=== PATIENT | male | born 1950 | race Caucasian/White ===

== ENCOUNTER 2021-10-29 14:16 | Emergency (ER) | payer MEDICARE, SELFPAY ==
--- NOTE | ~2021-10-29 | XR_ITS ---
EXAMINATION: XR chest 2V Exam Date/Time: 10/29/2021 14:50 CDT HISTORY: congestion, post covid 3 wks Comparison: 03/05/2017. RESULT: Lines, tubes, and devices: None. Lungs and pleura: Clear. Stable left midlung scar/granuloma. Cardiomediastinal silhouette: Stable. Other: No acute osseous or upper abdominal finding. IMPRESSION: No acute cardiopulmonary process. Reviewed, dictated and finalized at location K.
[2021-10-29 14:25] VITALS: BP 147/67; PULSE 69; RESP 20; TEMP 36.8; O2SAT 97
--- NOTE | 2021-10-29 14:46 | ED.URI ---
HPI - URI/Sore Throat General Chief Complaint: Upper Respiratory Infection Stated Complaint: Chest Congestion/Sore Throat Time Seen by Provider: 10/29/21 14:46 Source: patient and RN notes reviewed Mode of arrival: ambulatory Limitations: no limitations History of Present Illness HPI Narrative: 71-year-old male presented for complaint of chest feeling tight with breathing, occasional nonproductive cough, headache. Endorses testing positive for COVID on 10/17, symptoms had resolved after taking Paxil bid. Yesterday he woke with phlegm in the chest and sore throat. States his COVID test was negative today. He is taking [id number] Coricidin for symptoms. Denies chest pain, palpitations, dizziness, shortness of breath, nausea, vomiting, diarrhea, fevers or chills. MD elicited complaint: cough Related Data Home Medications Medication Instructions Recorded Confirmed cholecalciferol (vitamin D3) 50 50 mcg PO BID 05/06/20 10/29/21 mcg (2,000 unit) capsule magnesium citrate 100 mg capsule 100 mg PO BID 05/06/20 10/29/21 multivitamin 1 tablet PO DAILY 05/06/20 10/29/21 pyridoxine (vitamin B6) 25 mg 20 mg PO DAILY 05/06/20 10/29/21 tablet vitamin B complex (B 1 tablet PO DAILY 05/06/20 10/29/21 Complex-Vitamin B12 tablet) Allergies Allergy/AdvReac Type Severity Reaction Status Date / Time No Known Allergies Allergy Mild Verified 10/29/21 14:49 Review of Systems Review of Systems: CONSTITUTIONAL: denies malaise, chills, sweats, fever EYES: Denies visual changes, redness, or discharge ENT: Reports rhinorrhea, congestion, sore throat denies sinus pain, otalgia CARDIOVASCULAR: Denies chest pain, palpitations, edema RESPIRATORY: Reports cough, post nasal drainage. Denies dyspnea GASTROINTESTINAL: Denies abdominal pain, nausea, vomiting, diarrhea SKIN: Denies rash or itching MUSCULOSKELETAL: denies myalgia NEUROLOGIC: Denies headache PMFSH Past Medical History Medical History Diabetes History of prostate cancer HTN (hypertension) Hyperlipidemia Surgical History Surgical History History of prostatectomy age 42 Family History Family History Mother Diabetes mellitus Father Malignant neoplasm of prostate Family history of dementia Sibling Malignant neoplasm of prostate Grandparent Malignant neoplasm of prostate Social History Social History Smoking status: Former smoker Second hand tobacco smoke exposure: No Smoking end date: 04/02/90 Alcohol intake: current Alcohol use details: Occasional. Substance use: never Substance use type: does not use Gender identity (if verbalized by the patient): Male Exam Narrative: GENERAL: well-appearing, nontoxic EYES: conjunctivae clear ENT: Mucous membranes moist. TM pearly kolb with normal light reflex bilaterally; no tragal tenderness. Oropharynx erythematous without lesions or exudate, no drooling, no hoarseness, no trismus, uvula midline. CHEST: Clear to auscultation, breath sounds equal. HEART: Regular rate and rhythm. SKIN: Warm, dry, no rash. NEURO: Alert and oriented x3. Course Course Emergency Course: Patient is aware of diagnosis, understands and agrees to treatment plan. Anticipatory guidance given. Patient agrees to follow-up as directed and is aware of reasons to seek care at the emergency department. Portions of this record may have been created with voice recognition software Level of Care: Express Care Visit Vital Signs Vital signs: Vital Signs Temperature 98.2 F 10/29/21 14:25 Pulse Rate 69 10/29/21 14:25 Respiratory Rate 20 10/29/21 14:25 Blood Pressure 147/67 H 10/29/21 14:25 Pulse Oximetry 97 10/29/21 14:25 Oxygen Delivery Room Air 10/29/21 14:25 Temperature
== END 2021-10-29 15:17 | disposition home or self-care (01) ==
PROVIDERS: Emergency Provider Nurse Practitioner Family; PCP Family Medicine
DX: J40 Bronchitis, not specified as acute or chronic (principal); Z86.16 Personal history of COVID-19; Z87.891 Personal history of nicotine dependence; E11.9 Type 2 diabetes mellitus without complications; I10 Essential (primary) hypertension; E78.5 Hyperlipidemia, unspecified; Z85.46 Personal history of malignant neoplasm of prostate
CPT/HCPCS: 71046; 99213; G0463

== ENCOUNTER 2024-06-25 10:47 | Observation (INO) | payer MEDICARE, SELFPAY ==
--- NOTE | ~2024-06-25 | XR_ITS ---
EXAMINATION: XR foot RT min 3V DATE: 06/25/2024 11:19 INDICATION: Right foot infection postsurgery. TECHNIQUE: 5 views of right foot were obtained. COMPARISON: None. FINDINGS: Alignment is normal. No fracture. There is moderate osteoarthritis of first metatarsophalan geal joint. There is mild osteoarthritis of some of the interphalangeal joints and talonavicular join t. There are enthesophytes at the posterior and plantar aspects of calcaneal tuberosity. IMPRESSION: 1. No specific evidence of osteomyelitis. 2. Polyarticular osteoarthritis. Reviewed, dictated and finalized at location A.
[2024-06-25 10:53] VITALS: BP 147/65; PULSE 96; RESP 20; TEMP 36.4; O2SAT 97
--- NOTE | 2024-06-25 11:48 | ED_ITS ---
HPI - Wound/Laceration General Chief Complaint: Wound/Laceration Stated Complaint: R FOOT INFECTION, HX OF DIABETES Time Seen by Provider: 06/25/24 11:10 History of Present Illness HPI narrative: 73-year-old male with history of type 2 diabetes presenting to the emergency department for redness and swelling of his right foot with suspicion for cellulitis not responsive to outpatient antibiotics. Patient recently had foot surgery on that right side by his memory care program director locally on 06/19. Nose redness and swelling with pain starting on Sunday. Was prescribed antibiotics including Levaquin and clindamycin yesterday without any improvement he is knows that he is having spreading of the redness and warmth with radiating pain in his dorsum of the right foot. No purulent drainage, stitches are intact without any serosanguineous drainage or dehiscence. He was afebrile, no nausea or vomiting. No systemic features of infection. Was otherwise in his normal state of health. Patient is able to ambulate normally. He called his memory care program director who referred him to the emergency department for admission and IV antibiotics. Related Data Home Medications ?Medication ?Instructions ?Recorded ?Confirmed ?Last Taken ?Type cholecalciferol (vitamin D3) 50 50 mcg PO BID 05/06/20 02/12/24 Unknown History mcg (2,000 unit) capsule magnesium citrate 100 mg capsule 100 mg PO BID 05/06/20 02/12/24 Unknown History multivitamin 1 tablet PO DAILY 05/06/20 02/12/24 Unknown History vitamin B complex (B 1 tablet PO DAILY 05/06/20 02/12/24 Unknown History Complex-Vitamin B12 tablet) Allergies Allergy/AdvReac Type Severity Reaction Status Date / Time No Known Allergies Allergy Mild Verified 06/25/24 10:47 Review of Systems 2 Review of Systems: As reviewed above in HPI [facility] Past Medical History Medical History History of prostate cancer Hyperlipidemia HTN (hypertension) Diabetes Surgical History Surgical History History of prostatectomy age 42 Family History Family History Mother Diabetes mellitus Father Malignant neoplasm of prostate Family history of dementia Sibling Malignant neoplasm of prostate Grandparent Malignant neoplasm of prostate Social History Social History Smoking status: Former smoker Second hand tobacco smoke exposure: No Smoking end date: 04/02/90 Alcohol intake: current Alcohol use details: Occasional. Substance use: never Substance use type: does not use Lack of Transportation: No Lack of Food: Never True Current Housing: I Have Housing Concerned About Future Housing: No Difficulty Paying Gas/Electric Bills: No Difficulty Paying for Meds: No Currently Unemployed: No Education: High School Diploma/GED Difficulty w/ Childcare or Family Care: No Living arrangements: with family Occupation/Education: retired Gender identity (if verbalized by the patient): Male Exam 2 Narrative: GENERAL: [Well-appearing, well-nourished, and in no acute distress.] HEAD: [Normocephalic, atraumatic.] EYES: [PERRLA and EOMI.] ENT: Nares clear, no rhinorrhea or epistaxis. Mucous membranes moist. NECK: Supple. CHEST: [Clear to auscultation. No respiratory distress.] HEART: [Regular rate and rhythm]. No murmur heard. [Normal peripheral pulses.] ABDOMEN: [Soft, nondistended], [nontender], [No rigidity or guarding] EXTREMITIES: The right dorsum of the foot shows signs of cellulitis with erythema, tenderness with palpation, warmth and edema which is nonpitting. Plantar surface of the digit shows previous incision sites that are closed with intact sutures without any dehiscence or purulent drainage. No drainage expressed with palpation. No fluctuance or palpable abscess formation on the foot. No crepitus with palpation. No overlying ulcerations or open wounds to the air. 2+ DP pulse. SKIN: Warm, dry, no rash. NEURO: [No focal deficits]. Alert and oriented [x3.] PSYCH: [Normal mood and affect.] Course Vital Signs Vital signs: Vital Signs Temperature 36.4 C 06/25/24 10:53 Pulse Rate 96 06/25/24 10:53 Respiratory Rate 20 06/25/24 10:53 Blood Pressure 147/65 H 06/25/24 10:53 Pulse Oximetry 97 06/25/24 10:53 Oxygen Delivery Room Air 06/25/24 10:53 Temperature 36.4 C 06/25/24 10:53 Pulse Rate 96 06/25/24 10:53 Respiratory Rate 20 06/25/24 10:53 Blood Pressure 147/65 H 06/25/24 10:53 Pulse Oximetry 97 06/25/24 10:53 Oxygen Delivery Room Air 06/25/24 10:53 MDM - Wound/Laceration MDM Narrative Medical decision making narrative: 73-year-old male with history of type 2 diabetes and recent foot surgery on the right side with his local memory care program director Dr. Platt. Patient was prescribed outpatient antibiotics including clindamycin and Levaquin for suspected surgical site infection versus cellulitis given that he is a diabetic. Had 1 day of antibiotics with worsening of the redness and swelling so he was referred by his memory care program director to the ER for admission and IV antibiotics. The right dorsum of the foot shows signs of cellulitis with erythema, tenderness with palpation, warmth and edema which is nonpitting. Plantar surface of the digit shows previous incision sites that are closed with intact sutures without any dehiscence or purulent drainage. No drainage expressed with palpation. No fluctuance or palpable abscess formation on the foot. No crepitus with palpation. No overlying ulcerations or open wounds to the air. Patient is overall very well- appearing not any acute distress. He is afebrile, no tachycardia or tachypnea. Normal vital signs otherwise. Suspicion is low for systemic signs of infection. Will obtain blood cultures, inflammatory markers, x-ray of the foot, CBC and CMP. He was placed empirically on vancomycin and ceftriaxone for coverage of diabetic foot wounds. Suspicion presently is for diabetic foot infection, cellulitis, surgical site infection, low suspicion for necrotizing or soft tissue infection with abscess formation. Workup will be underway and patient will be admitted. Skin was demarcated with surgical marker to track spread of cellulitis. Dr. Alves as common evaluated the patient at bedside. Agreeable with the workup and plan for admission for IV antibiotics. Workup shows no leukocytosis or significant anemia. Normal platelet count. Electrolytes largely unremarkable. BUN and creatinine with slight increase from baseline CKD. Glucose 161 and not significant elevated. Normal LFTs. X-rays were independently reviewed and shows no evidence of osteomyelitis. Osteoarthropathy are seen. Patient will be admitted to the hospitalist service. Awaiting consultation from hospitalist team at this time. Spoke to the hospitalist team currently being covered by the midlevel provider Katie. She accepted the patient to a medical-surgical bed at this time. Podiatry on consult. Patient made aware and agreeable to admission at this time. Medical Records Attestation: I reviewed the patient's medical records. Lab Data Attestation: I reviewed the patient's lab results. 06/25/24 11:40 06/25/24 11:40 Labs: Lab Results 06/25/24 Range/Units 11:40 WBC 9.2 (4.5-10.0) K/mm3 RBC 4.22 L (4.6-6.20) M/mm3 Hgb 13.2 L (14.0-18.0) g/dL Hct 39.6 L (42.0-52.0) % MCV 93.8 (80-100) fl MCH 31.3 (26-34) pg MCHC 33.3 (32-36) g/dl RDW 13.0 (11.5-14.5) % Plt Count 208 (150-375) k/mm3 MPV 9.9 (7.4-10.4) fl Immature Gran % (Auto) 0.3 (0-0.5) % Neut % (Auto) 73.9 H (45.5-73.1) % Lymph % (Auto) 15.8 L (18.3-44.2) % [place] % (Auto) 9.5 H (2.6-8.5) % Eos % (Auto) 0.3 (0-4.4) % Baso % (Auto) 0.2 (0.2-1.2) % Lymph # (Auto) 1.46 (0.9-3.2) K/mm3 [place] # (Auto) 0.9 H (0.1-0.6) K/mm3 Eos # (Auto) 0.0 (0-0.3) K/mm3 Baso # (Auto) 0.0 (0.0-0.1) K/mm3 Abs Immat Gran (auto) 0.03 (0.00-0.031) K/mm3 Absolute Neuts (auto) 6.8 H (1.3-6.7) K/mm3 Absolute Nucleated RBC 0.000 (0.0-0.012) K/mm3 Nucleated RBC % 0.0 (0.0-0.2) % ESR 33 H (0-20) mm/hr Sodium 134 L (137-145) mmol/L Potassium 4.5 (3.4-5.0) mmol/L Chloride 99 (98-107) mmol/L Carbon Dioxide 24 (22-30) mmol/L Anion Gap 11 (4-12) mmol/L BUN 30 H (9-20) mg/dL Creatinine 1.55 H (0.7-1.3) mg/dL Estim Creat Clear Calc 52 ml/min Estimated GFR 44 L (59 - ) Glucose 161 H (65-110) mg/dL Calcium 9.2 (8.4-10.2) mg/dL Total Bilirubin 1.1 (0.2-1.3) mg/dL AST 25 (17-59) U/L ALT 22 (6-50) U/L Alkaline Phosphatase 75 (38-126) U/L C-Reactive Protein 13.9 H (<1.0) mg/dL Total Protein 8.0 (6.3-8.2) g/dL Albumin 4.2 (3.5-5.1) g/dL Imaging Data Attestation: I personally reviewed and interpreted this imaging study as follows: My impression: Impressions Foot X-Ray 06/25/24 11:24 IMPRESSION: 1. No specific evidence of osteomyelitis. 2. Polyarticular osteoarthritis. Discharge Plan Discharge Clinical Impression: Diabetic foot infection, Cellulitis Patient Disposition: Still a Patient Condition: Stable Patient Language: Latvian Prescriptions: No Action cholecalciferol (vitamin D3) 50 mcg (2,000 unit) capsule 50 mcg PO BID multivitamin Tablet 1 tablet PO DAILY magnesium citrate 100 mg capsule 100 mg PO BID vitamin B complex [B Complex-Vitamin B12] Tablet 1 tablet PO DAILY (DME) blood sugar diagnostic Strip See Rx Instructions .ROUTE .MEDSUPPLY Qty: 100 3RF Rx Instructions: Use to take blood sugar daily while fasting pioglitazone 30 mg tablet 30 mg PO DAILY Qty: 90 3RF Jardiance 10 mg tablet 10 mg PO DAILY Qty: 90 3RF doxycycline hyclate 100 mg capsule 100 mg PO BID Qty: 20 0RF atorvastatin 20 mg tablet 20 mg PO DAILY Qty: 90 3RF metformin 500 mg tablet extended release 24 hr 1,000 mg PO BID Qty: 360 3RF irbesartan 300 mg tablet 300 mg PO DAILY Qty: 90 1RF glipizide 10 mg tablet extended release 24hr 10 mg PO DAILY Qty: 90 3RF Follow-up/Referrals: Dayana Sosa MD [Primary Care Provider] - Time of Disposition: 13:59
[2024-06-25 11:50] LABS: Basophils Percent Auto 0.2 % (0.2-1.2); Eosinophils Percent Auto 0.3 % (0-4.4); Hematocrit 39.6 % (42.0-52.0); Hemoglobin 13.2 g/dL (14.0-18.0); Immature Granulocyte Absolute 0.03 K/mm3 (0.00-0.031); Immature Granulocyte Percent A 0.3 % (0-0.5); Lymphocytes Absolute Auto 1.46 K/mm3 (0.9-3.2); Lymphocytes Percent Auto 15.8 % (18.3-44.2); Mean Corpuscular HGB Conc 33.3 g/dl (32-36); Mean Corpuscular Hemoglobin 31.3 pg (26-34); Mean Corpuscular Volume 93.8 fl (80-100); Mean Platelet Volume 9.9 fl (7.4-10.4); Monocytes Absolute Auto 0.9 K/mm3 (0.1-0.6); Monocytes Percent Auto 9.5 % (2.6-8.5); Neutrophils Absolute Auto 6.8 K/mm3 (1.3-6.7); Neutrophils Percent Auto 73.9 % (45.5-73.1); Platelet Count Result 208 k/mm3 (150-375); Red Blood Count 4.22 M/mm3 (4.6-6.20); White Blood Count 9.2 K/mm3 (4.5-10.0)
[2024-06-25] MEDS: VANCOMYCIN 1,500 MG/NS 500 ML 1,500 MG/500 ML BAG 250 MG IVPB (11:54)
--- OUTSIDE RECORDS SUMMARY | 2024-06-25 12:13 | XMS_ITS | Clinical Summary ---
Author Organization [facility] Address [address] [address] Phone Care Team Providers Care Automobile Sales Consultant Name Role Phone Indio Gramajo MD Primary Care Provider [phone] Allergies No known active allergies Medications glipiZIDE (GLUCOTROL) 10 MG Tablet Take 10 mg by mouth daily. Active pioglitazone (ACTOS) 30 MG Tablet Take 30 mg by mouth daily. Active irbesartan (AVAPRO) 300 MG Tablet Take 300 mg by mouth every morning. Active Empagliflozin (Jardiance) 10 MG Tablet Take 10 mg by mouth daily. Active atorvastatin (LIPITOR) 20 MG Tablet Take 20 mg by mouth daily. Active metFORMIN (GLUCOPHAGE) 500 MG Tablet Take 1,000 mg by mouth 2 times daily (with meals). Active Pyridoxine HCl (VITAMIN B-6 PO) Take by mouth daily. Active B Complex Vitamins (B COMPLEX PO) Take by mouth daily. Active Cholecalciferol (VITAMIN D3 PO) Take by mouth daily. Active GARLIC PO Take by mouth daily. Active Multiple Vitamins-Mineral s (MENS 50+ MULTI VITAMIN/MIN PO) Take by mouth every morning. Active other by Other route daily. MG Enzyme Active CINNAMON PO Take 1,000 mg by mouth. Active Banner-3 Fatty Acids (FISH OIL PO) Take by mouth daily. Active Encounters Date Type Department Care Team Description 05/28/2024 Telephone [facility] - Gastroenterology - [place] [address] [place] [address] Darci Villa MD Procedure 05/13/2024 7:46 AM BULLET MAKER [facility] [address] [place] [address] Fredo Mayo, JOSÉ MIGUEL, BAND SAW OPERATOR CAKE CUTTING 05/13/2024 7:30 AM BULLET MAKER - 05/13/2024 8:00 AM BULLET MAKER [facility] [address] [place] [address] Darci Villa MD COLONOSCOPY - DIVERTICULOSIS, 05/13/2024 6:35 AM BULLET MAKER Ancillary [facility] [address] [facility] [place] [address] Darci Villa MD 05/13/2024 6:16 AM BULLET MAKER - 05/13/2024 9:33 AM BULLET MAKER [facility] Preop/Pacu II [address] [place] [address] Darci Villa MD Discharge Disposition: Discharged to home or Selfcare 05/13/2024 Travel 05/05/2024 Travel from Last 3 Months Family History Medical History Relation Name Comments Cancer Father Prostate Diabetes Mother Relation Name Status Comments Father Mother Social History Tobacco Use Types Packs/Day Years Used Date Smoking Tobacco: Former Cigarettes 0.5 20 Smokeless Tobacco: Former Tobacco Cessation:Counseling Given: Not Answered Comments:Quit 30 yrs ago Alcohol Use Standard Drinks/Week Comments Yes 0 (1 standard drink = 0.6 oz pur e alcohol) occassional Sex and Gender Information Value Date Recorded Sex Assigned at Not on file Legal Sex Male 8:09 PM CDT Gender Identity Not on file Sexual Orientation Not on file Last Filed Vital Signs Vital Sign Reading Time Taken Comments Blood Pressure 156/75 05/13/2024 9:00 AM BULLET MAKER Pulse 62 05/13/2024 9:00 AM BULLET MAKER Temperature 36 C (96.8 F) 05/13/2024 9:00 AM BULLET MAKER Respiratory Rate 16 05/13/2024 9:00 AM BULLET MAKER Oxygen Saturation 100% 05/13/2024 9:00 AM BULLET MAKER Inhaled Oxygen Concentration - - Weight 115.7 kg (255 lb) 05/05/2024 10:16 AM BULLET MAKER Height 182.9 cm (6') 05/05/2024 10:16 AM BULLET MAKER Body Mass Index 34.58 05/05/2024 10:16 AM BULLET MAKER Plan of Treatment Health Maintenance Due Date Last Done Comments Hepatitis C Virus (HCV) Screening 1950 Cologuard 2002 Immunochemical Fecal Occult Blood 2002 Pneumococcal Immunization (5 0+ years) (1 of 1 - PCV) 2002 Zoster Immunization (1 of 2) 2002 Respiratory Syncytial Virus (RSV) Immunization (Adult) (1 - Risk 60-74 years 1-dose series) 2012 AAA Screening Ultrasound 2017 Influenza Immunization (#1) 2023 01/23/2023 SARS-COV-2 Immunization (2 - season) 2023 04/09/2020 Colonoscopy 05/13/2029 05/13/2024, 06/29/2020 Colorectal Cancer Screening 05/13/2029 05/13/2024, 06/29/2020 DTaP/Tdap/Td Immunization Discontinued 2011, 04/02/1998 TdaP Immunization Completed 10/31/2011 Hepatitis B Immunization Aged Out No longer eligible based on patient's age to complete this topic Meningococcal Immunization (ACWY) Aged Out No longer eligible based on patient's age to complete this topic Rotavirus Immunization Aged Out No lo nger eligible based on patient's age to complete this topic Procedures Procedure Name Priority Date/Time Associated Diagnosis Comments COLON CA SCRN NOT HI RSK IND 05/13/2024 7:45 AM BULLET MAKER COLONOSCOPY - DIVERTICULOSIS, Special Needs DM - Dx screen COLORECTAL SCRN; HI RISK IND 05/13/2024 7:45 AM BULLET MAKER COLONOSCOPY - DIVERTICULOSIS, Special Needs DM - Dx screen [place] COLONOSCOPY FLX DX W/COLLJ SPEC WHEN PFRMD 05/13/2024 7:45 AM BULLET MAKER COLONOSCOPY - DIVERTICULOSIS, Special Needs DM - Dx screen POCT GLUCOSE Routine 05/13/2024 6:43 AM BULLET MAKER GI IMAGING - COLONOSCOPY Routine 05/13/2024 6:32 AM BULLET MAKER from Last 3 Months Results * (ABNORMAL) POCT Glucose (05/13/2024 6:43 AM BULLET MAKER) GLUCOSE,BEDSID E POCT 185(H) 70 - 99 mg/dL 05/13/2024 6:49 AM BULLET MAKER [facility] Comment:Patient RN Performed Blood 05/13/2024 6:43 AM BULLET MAKER 05/13/2024 6:49 AM BULLET MAKER us None Provider POINT OF CARE TESTING Final Resu lt [facility] [address] [place] [address] * GI IMAGING - COLONOSCOPY (05/13/2024 6:32 AM BULLET MAKER) us Darci Villa MD IMG DIAGNOSTIC ORDERABLES Final Result from Last 3 Months Insurance MEDICARE C AETNA Care Teams Automobile Sales Consultant Relationship Specialty Start Date End Date Indio Gramajo MD [address] [facility] [address] [place] [address] PCP - General Family Medicine 05/11/20
[2024-06-25 12:25] LABS: Alanine Aminotransferase 22 U/L (6-50); Albumin Level 4.2 g/dL (3.5-5.1); Alkaline Phosphatase 75 U/L (38-126); Anion Gap 11 mmol/L (4-12); Aspartate Amino Transferase 25 U/L (17-59); Bilirubin,Total 1.1 mg/dL (0.2-1.3); Blood Urea Nitrogen 30 mg/dL (9-20); CRP 13.9 mg/dL (<1.0); Calcium 9.2 mg/dL (8.4-10.2); Carbon Dioxide 24 mmol/L (22-30); Chloride 99 mmol/L (98-107); Estimated CRCL calculation 52 ml/min; Estimated Glomerular Filt Rate 44; Glucose 161 mg/dL (65-110); Potassium 4.5 mmol/L (3.4-5.0); Sodium 134 mmol/L (137-145)
[2024-06-25 12:56] LABS: Erythrocyte Sedimentation Rate 33 mm/hr (0-20)
--- OUTSIDE RECORDS SUMMARY | 2024-06-25 12:58 | XMS_ITS | Clinical Summary ---
Author Organization [facility] Address [address] [address] Phone Care Team Providers Care Registered Nurse Cardiovascular Icu Name Role Phone Indio Gramajo MD Primary Care Provider [phone]- [phone] Allergies No known active allergies Medications glipiZIDE [...] PO Take 1,000 mg by mouth. Active Independence-3 Fatty Acids (FISH OIL PO) Take by mouth daily. Active Encounters Date Type Department Care Team Description 05/28/2024 Telephone [facility] Medical Group - Gastroenterology - [place] [address] [place] [address] Darci Villa MD Procedure 05/13/2024 7:46 AM CUSTOMER ACCOUNT SPECIALIST [facility] [address] [place] [address] Fredo Mayo, JOSÉ MIGUEL, TIRE FIXER 05/13/2024 7:30 AM CUSTOMER ACCOUNT SPECIALIST - 05/13/2024 8:00 AM CUSTOMER ACCOUNT SPECIALIST [facility] [address] [place] [address] Darci Villa MD COLONOSCOPY - DIVERTICULOSIS, 05/13/2024 6:35 AM CUSTOMER ACCOUNT SPECIALIST [facility]illary [facility] [place] [address] Darci Villa MD 05/13/2024 6:16 AM CUSTOMER ACCOUNT SPECIALIST - 05/13/2024 9:33 AM CUSTOMER ACCOUNT SPECIALIST [facility] [address] [place] [address] Darci Villa MD Discharge Disposition: Discharged to [...] Comments Blood Pressure 156/75 05/13/2024 9:00 AM CUSTOMER ACCOUNT SPECIALIST Pulse 62 05/13/2024 9:00 AM CUSTOMER ACCOUNT SPECIALIST Temperature 36 C (96.8 F) 05/13/2024 9:00 AM CUSTOMER ACCOUNT SPECIALIST Respiratory Rate 16 05/13/2024 9:00 AM CUSTOMER ACCOUNT SPECIALIST Oxygen Saturation 100% 05/13/2024 9:00 AM CUSTOMER ACCOUNT SPECIALIST Inhaled Oxygen Concentration - - Weight 115.7 kg (255 lb) 05/05/2024 10:16 AM CUSTOMER ACCOUNT SPECIALIST Height 182.9 cm (6') 05/05/2024 10:16 AM CUSTOMER ACCOUNT SPECIALIST Body Mass Index 34.58 05/05/2024 10:16 AM CUSTOMER ACCOUNT SPECIALIST Plan of Treatment Health Maintenance Due Date [...] NOT HI RSK IND 05/13/2024 7:45 AM CUSTOMER ACCOUNT SPECIALIST COLONOSCOPY - DIVERTICULOSIS, Special Needs DM - Dx screen COLORECTAL SCRN; HI RISK IND 05/13/2024 7:45 AM CUSTOMER ACCOUNT SPECIALIST COLONOSCOPY - DIVERTICULOSIS, Special Needs DM - Dx screen [place] COLONOSCOPY FLX DX W/COLLJ SPEC WHEN PFRMD 05/13/2024 7:45 AM CUSTOMER ACCOUNT SPECIALIST COLONOSCOPY - DIVERTICULOSIS, Special Needs DM - Dx screen POCT GLUCOSE Routine 05/13/2024 6:43 AM CUSTOMER ACCOUNT SPECIALIST GI IMAGING - COLONOSCOPY Routine 05/13/2024 6:32 AM CUSTOMER ACCOUNT SPECIALIST from Last 3 Months Results * (ABNORMAL) POCT Glucose (05/13/2024 6:43 AM CUSTOMER ACCOUNT SPECIALIST) GLUCOSE,BEDSID E POCT 185(H) 70 - 99 mg/dL 05/13/2024 6:49 AM CUSTOMER ACCOUNT SPECIALIST [facility] Comment:Patient RN Performed Blood 05/13/2024 6:43 AM CUSTOMER ACCOUNT SPECIALIST 05/13/2024 6:49 AM CUSTOMER ACCOUNT SPECIALIST us None Provider POINT OF CARE TESTING Final Resu lt [facility] [address] [place] [address] * GI IMAGING - COLONOSCOPY (05/13/2024 6:32 AM CUSTOMER ACCOUNT SPECIALIST) us Darci Villa MD IMG DIAGNOSTIC ORDERABLES Final Result from Last 3 Months Insurance MEDICARE C AETNA Care Teams Registered Nurse Cardiovascular Icu Relationship Specialty Start Date End Date Indio Gramajo MD [address] [facility] [address] [place] [address] PCP - General Family Medicine 05/11/20
[2024-06-25 14:10] VITALS: BP 152/86; PULSE 76; RESP 14; O2SAT 98
[2024-06-25 17:07] VITALS: BP 146/75; PULSE 84; RESP 20; O2SAT 97
--- OUTSIDE RECORDS SUMMARY | 2024-06-25 17:29 | XMS_ITS | Clinical Summary ---
Author Organization [facility] Address [address] [address] Phone Care Team Providers Care Livestock Nutritionist Name Role Phone Indio Gramajo MD Primary Care Provider [phone] Allergies No known active allergies Medications glipiZIDE [...] PO Take 1,000 mg by mouth. Active Monument-3 Fatty Acids (FISH OIL PO) Take by mouth daily. Active Encounters Date Type Department Care Team Description 05/28/2024 Telephone [facility] - Gastroenterology - [place] [address] [place] [address] Darci Villa MD Procedure 05/13/2024 7:46 AM REMOTE ADVISOR Anesthesia Event [facility] Periop [address] [place] [address] Fredo Mayo, JOSÉ MIGUEL, ONLINE ADVERTISING ANALYST 05/13/2024 7:30 AM REMOTE ADVISOR - 05/13/2024 8:00 AM REMOTE ADVISOR Surgery [facility] Periop [address] [place] [address] Darci Villa MD COLONOSCOPY - DIVERTICULOSIS, 05/13/2024 6:35 AM REMOTE ADVISOR Ancillary Procedure [facility] Main [facility] [place] [address] Darci Villa MD 05/13/2024 6:16 AM REMOTE ADVISOR - 05/13/2024 9:33 AM REMOTE ADVISOR Hospital Encounter [facility] Preop/Pacu II [address] [place] [address] Darci Villa MD Discharge Disposition: Discharged to [...] Comments Blood Pressure 156/75 05/13/2024 9:00 AM REMOTE ADVISOR Pulse 62 05/13/2024 9:00 AM REMOTE ADVISOR Temperature 36 C (96.8 F) 05/13/2024 9:00 AM REMOTE ADVISOR Respiratory Rate 16 05/13/2024 9:00 AM REMOTE ADVISOR Oxygen Saturation 100% 05/13/2024 9:00 AM REMOTE ADVISOR Inhaled Oxygen Concentration - - Weight 115.7 kg (255 lb) 05/05/2024 10:16 AM REMOTE ADVISOR Height 182.9 cm (6') 05/05/2024 10:16 AM REMOTE ADVISOR Body Mass Index 34.58 05/05/2024 10:16 AM REMOTE ADVISOR Plan of Treatment Health Maintenance Due Date [...] NOT HI RSK IND 05/13/2024 7:45 AM REMOTE ADVISOR COLONOSCOPY - DIVERTICULOSIS, Special Needs DM - Dx screen COLORECTAL SCRN; HI RISK IND 05/13/2024 7:45 AM REMOTE ADVISOR COLONOSCOPY - DIVERTICULOSIS, Special Needs DM - Dx screen SD COLONOSCOPY FLX DX W/COLLJ SPEC WHEN PFRMD 05/13/2024 7:45 AM REMOTE ADVISOR COLONOSCOPY - DIVERTICULOSIS, Special Needs DM - Dx screen POCT GLUCOSE Routine 05/13/2024 6:43 AM REMOTE ADVISOR GI IMAGING - COLONOSCOPY Routine 05/13/2024 6:32 AM REMOTE ADVISOR from Last 3 Months Results * (ABNORMAL) POCT Glucose (05/13/2024 6:43 AM REMOTE ADVISOR) GLUCOSE,BEDSID E POCT 185(H) 70 - 99 mg/dL 05/13/2024 6:49 AM REMOTE ADVISOR [facility] Comment:Patient RN Performed Blood 05/13/2024 6:43 AM REMOTE ADVISOR 05/13/2024 6:49 AM REMOTE ADVISOR us None Provider POINT OF CARE TESTING Final Resu lt [facility] [address] [place] [address] * GI IMAGING - COLONOSCOPY (05/13/2024 6:32 AM REMOTE ADVISOR) us Darci Villa MD IMG DIAGNOSTIC ORDERABLES Final Result from Last 3 Months Insurance MEDICARE C [employer]ET[employer] Care Teams Livestock Nutritionist Relationship Specialty Start Date End Date Indio Gramajo MD [address] [facility] [address] [place] [address] PCP - General Family Medicine 05/11/20
[2024-06-25 18:00] VITALS: BMI 34.6; BMI 34.8
[2024-06-25 18:04] VITALS: BP 149/59; PULSE 87; RESP 18; TEMP 36.4; O2SAT 100
--- NOTE | 2024-06-25 18:05 | ADMGEN ---
This patient, Brandan Lara, was admitted to [facility] Room 322-02. Patient/family oriented to hospital policies and general routines including ID bracelet, bed and alarms, visiting hours, pain management, procedures, bathroom and other care routines, personal items, smoking policy, room service/diet, and visiting hours. Information on how to activate the Rapid Response Team has been discussed. Patient/Family are encouraged to report perceived risks to care and to ask questions if they do not understand what they are told or what they should do.
[2024-06-25 20:51] LABS: Glucose Point of Care 152 mg/dl (65-105)
[2024-06-25 21:25] VITALS: BP 138/57; PULSE 85; RESP 13; TEMP 36.4; O2SAT 99
--- NOTE | 2024-06-25 23:07 | PM.IMHP ---
H&P: HPI History of Present Illness Date/Time: 06/25/24 23:07 Chief Complaint: Foot redness and swelling Narrative: 73-year-old male with past medical history of hyperlipidemia, hypertension, diabetes, prostate cancer s/p prostatectomy presents here with redness and swelling to his right foot post surgery. The patient presents here from home for further evaluation of redness and swelling to his right foot. This was precipitated by surgery on 06/19 with Lc ARMENDARIZ (slate trimmer). He 1st noticed the changes in his foot on Sunday evening. Initially only had scant erythema. He reported these findings to the slate trimmer who initiated Levaquin and Clindamycin p.o. outpatient. Despite the antibiotics, the redness and swelling have continued to spread over the dorsum of his right foot. No drainage, fever, chills, body aches, nausea, vomiting, diarrhea. He reports he had a similar procedure to his left foot done approximately a month and half ago with no complications. Initial VS at presentation: 97.6? F, HR 96, R 20, 147/65, and 97% on RA. ED workup showed: No leukocytosis, hemoglobin 13.2, sodium 134, creatinine 1.55 and GFR 44 (at baseline), glucose 152, CRP 13.9. Foot XR showed no specific evidence of osteomyelitis and polyarticular osteoarthritis. Review of Systems Review of Systems: All systems reviewed & are unremarkable except as noted in HPI and below PMFSH Past Medical History Medical History History of prostate cancer Sleep apnea Hyperlipidemia HTN (hypertension) Diabetes Surgical History Surgical History History of prostatectomy age 42 Family History Family History Mother Diabetes mellitus Father Malignant neoplasm of prostate Family history of dementia Sibling Malignant neoplasm of prostate Grandparent Malignant neoplasm of prostate Social History Social History Smoking status: Former smoker Second hand tobacco smoke exposure: No Alcohol intake: current Alcohol use details: Occasional. Substance use: never Substance use type: does not use Do You Feel Safe in your Home?: Yes Lack of Transportation: No Lack of Food: Never True Current Housing: I Have Housing Concerned About Future Housing: No Difficulty Paying Gas/Electric Bills: No Difficulty Paying for Meds: No Currently Unemployed: No Education: High School Diploma/GED Difficulty w/ Childcare or Family Care: No Living arrangements: with family Occupation/Education: retired Gender identity (if verbalized by the patient): Male Spiritual care concerns: No Meds Home Medications and Allergies Home Medications ?Medication ?Instructions ?Recorded ?Confirmed ?Type cholecalciferol (vitamin D3) 50 50 mcg PO BID 05/06/20 06/25/24 History mcg (2,000 unit) capsule multivitamin 1 tablet PO DAILY 05/06/20 06/25/24 History vitamin B complex (B 1 tablet PO DAILY 05/06/20 06/25/24 History Complex-Vitamin B12 tablet) blood sugar diagnostic #100 ea 04/05/23 06/25/24 Rx pioglitazone 30 mg tablet 30 mg PO DAILY #90 tabs 06/15/23 06/25/24 Rx empagliflozin 10 mg tablet 10 mg PO DAILY #90 tabs 12/27/23 06/25/24 Rx (Jardiance) atorvastatin 20 mg tablet 20 mg PO DAILY #90 tabs 02/22/24 06/25/24 Rx irbesartan 300 mg tablet 300 mg PO DAILY #90 tabs 04/18/24 06/25/24 Rx glipizide 10 mg tablet, extended 10 mg PO DAILY #90 tabs 06/09/24 06/25/24 Rx release 24 hr metformin 500 mg tablet,extended 1,000 mg PO BIDWMEAL 06/25/24 06/25/24 History release 24 hr Allergies Allergy/AdvReac Type Severity Reaction Status Date / Time No Known Allergies Allergy Mild Verified 06/25/24 10:47 Vital Signs Vital Signs - 24 hr 06/25/24 10:53 06/25/24 14:10 06/25/24 17:07 Temperature 97.6 F Pulse Rate 96 76 84 Respiratory Rate 20 14 20 Blood Pressure 147/65 H 152/86 H 146/75 H Pulse Oximetry 97 98 97 Oxygen Delivery Room Air 06/25/24 18:04 06/25/24 21:25 Temperature 97.6 F 97.6 F Pulse Rate 87 85 Respiratory Rate 18 13 Blood Pressure 149/59 H 138/57 L Pulse Oximetry 100 99 Oxygen Delivery Exam Const: General: comfortable and no acute distress Other: , male, nontoxic appearance HENMT: Face/Nose/Sinus: Normal nares present Mouth: Yes moist mucous membranes Eyes: General: appearance normal, both eyes and all related structures Sclera: sclerae normal Pupils: Equal, round and reactive pupils present EOM: EOMs intact bilaterally Resp: Effort & Inspection: normal respiratory effort Auscultation: clear to auscultation bilaterally Cardio: Rate: regular rate Rhythm: regular rhythm Other: S1-S2 present without murmur, rub, ectopy GI: Other: Abdomen soft, nondistended, nontender. Normoactive bowel sounds in all quadrants. Skin: Other: Erythema, tenderness, warmth, and edema noted to dorsum of right foot. Edema is nonpitting. Stitches noted to plantar base of toes, no drainage and sutures remain intact. No areas of fluctuation. Neuro: Speech: normal speech Motor exam (neuro): 5/5 motor strength present throughout Sensory Exam: normal sensation Other: A&O x4 Extrem: General: normal exam except as noted (See skin exam) Other: DP 2+ bilateral Psych: Mental Status: mental status grossly normal Affect: normal affect Other: Good insight and judgment, pleasant H&P: Results Labs Labs: Short CBC 06/25/24 Range/Units 11:40 WBC 9.2 (4.5-10.0) K/mm3 Hgb 13.2 L (14.0-18.0) g/dL Hct 39.6 L (42.0-52.0) % Plt Count 208 (150-375) k/mm3 BMP 06/25/24 11:40 Sodium 134 L Potassium 4.5 Chloride 99 Carbon Dioxide 24 BUN 30 H Creatinine 1.55 H Glucose 161 H Calcium 9.2 Liver Function 06/25/24 Range/Units 11:40 Total Bilirubin 1.1 (0.2-1.3) mg/dL AST 25 (17-59) U/L ALT 22 (6-50) U/L Alkaline Phosphatase 75 (38-126) U/L Albumin 4.2 (3.5-5.1) g/dL Assessment and Plan Assessment and plan (1) Diabetic foot infection: Code(s): E11.628 - Type 2 diabetes mellitus with other skin complications; L08.9 - Local infection of the skin and subcutaneous tissue, unspecified Status: Acute Assessment and Plan: - did not meet SIRS criteria, HR only. Blood cultures obtained in ED on 06/25, follow. - foot XR: 1. No specific evidence of osteomyelitis. 2. Polyarticular osteoarthritis. - wound culture ordered if patient develops drainage - started on cefepime, metronidazole, and vancomycin on 06/25 - analgesics and antipyretics p.r.n. 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 Continue Jardiance, Actos, and glipizide. - correct regimen ordered - low/high dose TIDWM - A1C 6.9% on 02/01/2024, update (3) Primary hypertension: Code(s): I10 - Essential (primary) hypertension Status: Chronic Assessment and Plan: - chronic, currently 138/57 - continue home medications: Irbesartan - monitor Plan Diet: Diabetic GI Prophylaxis: Not currently indicated DVT Prophylaxis: Lovenox Lines: Peripheral Code Status: Full code Quality VTE Prophylaxis VTE prophylaxis: mechanical ordered Hospitalist [facility] Advance Care Plan I have confirmed that the patient's Advanced Care Plan is present, code status is documented, or surrogate decision maker is listed in patient medical record.: Yes Medication Reconciliation I have utilized all available resources to obtain, update and review the patients current medications (includes all prescriptions, OTC, herbals, cannabis, and nutritional supplements).: Yes
[2024-06-26] MEDS: CEFEPIME 1 GM/NS 50 ML 1 GM/50 ML BAG IVPB ×2 (00:38→12:32)
[2024-06-26] MEDS: metroNIDAZOLE 500 MG/ISO 100ML 500 MG/100 ML BAG 100 MG IVPB ×3 (01:11→17:44)
[2024-06-26 05:44] VITALS: BP 131/58; PULSE 90; RESP 12; TEMP 36.6; O2SAT 96
[2024-06-26 06:18] LABS: Estimated CRCL calculation 55 ml/min; Estimated Glomerular Filt Rate 48
[2024-06-26 07:18] LABS: Hemoglobin A1C 6.6 % (<5.7)
[2024-06-26 07:38] LABS: Glucose Point of Care 147 mg/dl (65-105)
[2024-06-26] MEDS: CHOLECALCIFEROL 1,000 UNITS TABLET 2000 UNITS PO ×2 (08:52→17:43)
[2024-06-26] MEDS: ATORVASTATIN 20 MG TABLET PO (08:53)
[2024-06-26] MEDS: EMPAGLIFLOZIN 10 MG TABLET PO (08:53)
[2024-06-26] MEDS: VITAMIN B COMPLEX CAPSULE 1 CAP PO (08:53)
[2024-06-26] MEDS: PIOGLITAZONE HCL 30 MG TABLET PO (08:53)
[2024-06-26] MEDS: MULTIVITAMINS THERAPEUTIC TAB (*BKC) 1 TABLET PO (08:53)
[2024-06-26] MEDS: IRBESARTAN 150 MG TABLET 300 MG PO (08:53)
[2024-06-26] MEDS: glipiZIDE XL 5 MG TABCR 10 MG PO (08:54)
[2024-06-26 09:49] LABS: Hematocrit 37.9 % (42.0-52.0); Hemoglobin 12.4 g/dL (14.0-18.0); Mean Corpuscular HGB Conc 32.7 g/dl (32-36); Mean Corpuscular Volume 94.8 fl (80-100); Mean Platelet Volume 10.2 fl (7.4-10.4); Platelet Count Result 211 k/mm3 (150-375); Red Cell Distribution Width 13.1 % (11.5-14.5); White Blood Count 8.1 K/mm3 (4.5-10.0)
[2024-06-26 10:08] LABS: Alanine Aminotransferase 20 U/L (6-50); Albumin Level 3.6 g/dL (3.5-5.1); Alkaline Phosphatase 66 U/L (38-126); Anion Gap 10 mmol/L (4-12); Aspartate Amino Transferase 24 U/L (17-59); Bilirubin,Total 0.7 mg/dL (0.2-1.3); Blood Urea Nitrogen 30 mg/dL (9-20); Calcium 8.9 mg/dL (8.4-10.2); Carbon Dioxide 24 mmol/L (22-30); Chloride 102 mmol/L (98-107); Estimated CRCL calculation 50 ml/min; Estimated Glomerular Filt Rate 43; Glucose 109 mg/dL (65-110); Potassium 4.3 mmol/L (3.4-5.0); Sodium 136 mmol/L (137-145)
[2024-06-26 11:45] LABS: Glucose Point of Care 170 mg/dl (65-105)
--- NOTE | 2024-06-26 11:57 | P.PNIM_ITS ---
Progress Note: A&P Assessment and Plan (1) Diabetic foot infection: Code(s): E11.628 - Type 2 diabetes mellitus with other skin complications; L08.9 - Local infection of the skin and subcutaneous tissue, unspecified Status: Acute Assessment and Plan: Patient had recent surgery for claw foot with Podiatry presented with swelling and erythema worsening for the last 2 days over right lower extremity patient r eports he only took his oral antibiotics prescribed for 1 day and was told by shield installer to come to the emergency room for IV antibiotics * Blood cultures NGTD * Wound culture unobtainable due to no open wound * foot XR: 1. No specific evidence of osteomyelitis. 2. Polyarticular osteoarthritis. * started on cefepime, metronidazole, and vancomycin on 06/25 * Recommended duration of antibiotic therapy for 7-10 days. * analgesics and antipyretics p.r.n. * podiatry will continue to follow * trend white count Normal on admission (2) Type 2 diabetes with nephropathy: Code(s): E11.21 - Type 2 diabetes mellitus with diabetic nephropathy Status: Chronic Assessment and Plan: * hypoglycemia protocol * POC blood glucose ACHS * home medication: Hold metformin. Continue Jardiance, Actos, and glipizide. * correct regimen ordered - low/high dose TIDWM * A1C 6.9% on 02/01/2024 (3) Primary hypertension: Code(s): I10 - Essential (primary) hypertension Status: Chronic Assessment and Plan: * chronic, currently 138/57 * continue home medications: Irbesartan * reviewed, Monitor BP per unit protocol Plan Code status: Full code per patient DVT prophylaxis: Lovenox Stress ulcer prophylaxis: Protonix 40 daily PT/OT notes: Ambulatory Disposition: Patient continues admission for cellulitis to right lower e xtremity continue with current IV antibiotic therapy can hopefully deescalate to oral therapy if symptoms improve. Patient is ambulatory and plan is to return home when medically stable Time Spent With Patient Time with patient: 15 - 25 minutes Subjective Date/time seen: 06/26/24 11:57 Interval history: Patient is a 73-year-old male who is admitted for cellulitis of the right lower extremity post surgical repair of claw foot. 06/26/24: Assumed Care Patient denies CP, SOB , N/V and minimal pain to RLE. Erythema improving from original markings and patient reports edema improved. Review of Systems Review of Systems: All systems reviewed & are unremarkable except as noted in HPI and below Exam Const: General: comfortable and no acute distress HENMT: Mouth: Yes moist mucous membranes Eyes: General: appearance normal, both eyes and all related structures Neck: Neck: supple Resp: Effort & Inspection: normal respiratory effort Auscultation: clear to auscultation bilaterally Cardio: Rate: regular rate Rhythm: regular rhythm GI: GI Palp: Yes Soft to palpation Auscultation: normal bowel sounds Skin: General skin exam: erythema (RLE) Other: Erythema, tenderness, warmth, and edema noted to dorsum of right foot. Edema is nonpitting. Stitches noted to plantar base of toes, no drainage and sutures remain intact. No areas of fluctuation. Neuro: Speech: normal speech Sensory Exam: normal sensation Extrem: General: edema right Psych: Mental Status: mental status grossly normal Affect: normal affect Objective Data Vital Signs Vital Signs: Vital Signs - 24 hr 06/25/24 14:10 06/25/24 17:07 06/25/24 18:04 Temperature 97.6 F Pulse Rate 76 84 87 Respiratory Rate 14 20 18 Blood Pressure 152/86 H 146/75 H 149/59 H Pulse Oximetry 98 97 100 Oxygen Delivery 06/25/24 21:25 06/26/24 05:44 06/26/24 08:53 Temperature 97.6 F 97.8 F Pulse Rate 85 90 Respiratory Rate 13 12 Blood Pressure 138/57 L 131/58 L Pulse Oximetry 99 96 Oxygen Delivery Room Air Intake/Output Intake/Output: Intake & Output 06/23/24 06/24/24 06/25/24 06/26/24 23:59 23:59 23:59 23:59 Intake Total 830 1110 Output Total 550 Balance 280 1110 Meds/Results Medications: Active Medications Generic Name Dose Route Start Last Admin Trade Name Freq PRN Reason Stop Dose Admin Acetaminophen 650 mg 06/25/24 16:03 Acetaminophen 325 Mg Tablet PO Q4H PRN Mild Pain (1-3) or Fever Hydrocodone Bitart/Acetaminophen 1 tab 06/26/24 00:02 Hydrocodone/Acetaminophen (*Crx) 5-325 Mg Tablet PO Q6H PRN Pain Rated 4-6 Atorvastatin Calcium 20 mg 06/26/24 09:00 06/26/24 08:53 Atorvastatin 20 Mg Tablet PO 20 mg DAILY BOGDAN Administration Dextrose 12.5 gm 06/25/24 23:59 Dextrose 50% 25 Gm/50 Ml Syringe IV PUSH PRN PRN Hypoglycemia Protocol Empagliflozin 10 mg 06/26/24 09:00 06/26/24 08:53 Empagliflozin 10 Mg Tablet PO 10 mg DAILY BOGDAN Administration Enoxaparin Sodium 40 mg 06/26/24 09:00 06/26/24 08:54 Enoxaparin 40 Mg/0.4 Ml Syringe SUB-Q Not Given DAILY BOGDAN Glipizide 10 mg 06/26/24 09:00 06/26/24 08:54 Glipizide Xl 5 Mg Tabcr PO 10 mg DAILY BOGDAN Administration Glucagon 1 mg 06/25/24 23:59 Glucagon For Inj 1 Mg Vial IM PRN PRN Hypoglycemia Protocol Glucose 15 gm 06/25/24 23:59 Glucose Oral Gel 15 Gm Of Glucse In 37.5 Gm Tube PO PRN PRN Hypoglycemia Protocol Vancomycin HCl 1,500 mg in 500 mls @ 250 mls/hr 06/26/24 12:00 Vancomycin 1,500 Mg/Ns 500 Ml IVPB Q24H BOGDAN Cefepime HCl 1 gm in 50 mls @ 100 mls/hr 06/26/24 01:00 06/26/24 01:11 Maxipime 1 Gm/Ns 50 Ml IVPB Infused Q12H BOGDAN Infusion Metronidazole 500 mg in 100 mls @ 100 mls/hr 06/26/24 01:00 06/26/24 09:53 Flagyl 500 Mg/Iso Soln 100 Ml IVPB Infused Q8H BOGDAN Infusion Dextrose 1,000 mls @ 100 mls/hr 06/25/24 23:59 Dextrose 5% 1,000 Ml IVPB PRN PRN Hypoglycemia Protocol Irbesartan 300 mg 06/26/24 09:00 06/26/24 08:53 Irbesartan 150 Mg Tablet PO 300 mg DAILY BOGDAN Administration Morphine Sulfate 2 mg 06/26/24 00:02 Morphine Sulfate (*Crx) 2 Mg/Ml Inj IV PUSH Q4H PRN Pain Rated 7-10 Multivitamins Therapeutic 1 tablet 06/26/24 09:00 06/26/24 08:53 Multivitamins Therapeutic Tab (*Bkc) PO 1 tablet DAILY BOGDAN Administration Ondansetron HCl 4 mg 06/25/24 16:03 Ondansetron Inj 4 Mg/2 Ml Vial IV PUSH Q4H PRN Nausea Pioglitazone HCl 30 mg 06/26/24 09:00 06/26/24 08:53 Pioglitazone Hcl 30 Mg Tablet PO 30 mg DAILY BOGDAN Administration Vitamin B Complex 1 cap 06/26/24 09:00 06/26/24 08:53 Vitamin B Complex Capsule PO 1 cap DAILY BOGDAN Administration Vitamin D 2,000 units 06/26/24 09:00 06/26/24 08:52 Cholecalciferol 1,000 Units Tablet PO 2,000 units BID BOGDAN Administration Radiology Results: ITS Impressions Foot X-Ray 06/25/24 11:24 IMPRESSION: 1. No specific evidence of osteomyelitis. 2. Polyarticular osteoarthritis. Labs Labs: Laboratory Results - last 24 hr 06/25/24 06/25/24 06/26/24 11:40 20:33 05:46 WBC 9.2 8.1 RBC 4.22 L 4.00 L Hgb 13.2 L 12.4 L Hct 39.6 L 37.9 L MCV 93.8 94.8 MCH 31.3 31.0 MCHC 33.3 32.7 RDW 13.0 13.1 Plt Count 208 211 MPV 9.9 10.2 Immature Gran % (Auto) 0.3 Neut % (Auto) 73.9 H Lymph % (Auto) 15.8 L [place] % (Auto) 9.5 H Eos % (Auto) 0.3 Baso % (Auto) 0.2 Lymph # (Auto) 1.46 [place] # (Auto) 0.9 H Eos # (Auto) 0.0 Baso # (Auto) 0.0 Abs Immat Gran (auto) 0.03 Absolute Neuts (auto) 6.8 H Absolute Nucleated RBC 0.000 Nucleated RBC % 0.0 ESR 33 H Sodium 134 L 136 L Potassium 4.5 4.3 Chloride 99 102 Carbon Dioxide 24 24 Anion Gap 11 10 BUN 30 H 30 H Creatinine 1.55 H 1.60 H Estim Creat Clear Calc 52 50 Estimated GFR 44 L 43 L Glucose 161 H 109 POC Capillary Glucose 152 H Hemoglobin A1c Calcium 9.2 8.9 Total Bilirubin 1.1 0.7 AST 25 24 ALT 22 20 Alkaline Phosphatase 75 66 C-Reactive Protein 13.9 H Total Protein 8.0 7.0 Albumin 4.2 3.6 06/26/24 06/26/24 06/26/24 05:50 07:35 11:41 WBC RBC Hgb Hct MCV MCH MCHC RDW Plt Count MPV Immature Gran % (Auto) Neut % (Auto) Lymph % (Auto) [place] % (Auto) Eos % (Auto) Baso % (Auto) Lymph # (Auto) [place] # (Auto) Eos # (Auto) Baso # (Auto) Abs Immat Gran (auto) Absolute Neuts (auto) Absolute Nucleated RBC Nucleated RBC % ESR Sodium Potassium Chloride Carbon Dioxide Anion Gap BUN Creatinine 1.45 H Estim Creat Clear Calc 55 Estimated GFR 48 L Glucose POC Capillary Glucose 147 H 170 H Hemoglobin A1c 6.6 H Calcium Total Bilirubin AST ALT Alkaline Phosphatase C-Reactive Protein Total Protein Albumin Quality VTE Prophylaxis VTE prophylaxis: pharmacologic ordered -Patient's previous records reviewed on admission -ER notes reviewed in detail on admission -discussed all findings and current treatment plan with patient/Family/POA -Consultations reviewed for recommendations -Patient's disposition for safe discharge discussed with social work case manager Dictation performed by [employer] direct speech recognition software, therefore molecular modeler variants and typographical errors may occur. Hospitalist [facility] Advance Care Plan I have confirmed that the patient's Advanced Care Plan is present, code status is documented, or surrogate decision maker is listed in patient medical record.: Yes Medication Reconciliation I have utilized all available resources to obtain, update and review the patients current medications (includes all prescriptions, OTC, herbals, cannabis, and nutritional supplements).: Yes The patient is not eligible for med reconciliation; the patient is in a emergent medical situation where delaying treatment would jeopardize the patients health.: No
[2024-06-26] MEDS: VANCOMYCIN 1,500 MG/NS 500 ML 1,500 MG/500 ML BAG 250 MG IVPB (12:33)
[2024-06-26 14:00] VITALS: BP 130/60; PULSE 88; RESP 20; TEMP 36.8; O2SAT 97
[2024-06-26 17:19] LABS: Glucose Point of Care 236 mg/dl (65-105)
[2024-06-26 20:31] LABS: Glucose Point of Care 219 mg/dl (65-105)
[2024-06-26 21:07] VITALS: BP 122/72; PULSE 87; RESP 18; TEMP 36.8; O2SAT 98
[2024-06-26 22:58] VITALS: PULSE 88; O2SAT 94
[2024-06-27] MEDS: CEFEPIME 1 GM/NS 50 ML 1 GM/50 ML BAG IVPB ×2 (00:32→14:23)
[2024-06-27] MEDS: metroNIDAZOLE 500 MG/ISO 100ML 500 MG/100 ML BAG 100 MG IVPB ×2 (01:01→08:56)
[2024-06-27 05:41] VITALS: BP 123/66; PULSE 90; RESP 18; TEMP 36.6; O2SAT 98
[2024-06-27 06:16] LABS: Alanine Aminotransferase 20 U/L (6-50); Albumin Level 3.7 g/dL (3.5-5.1); Alkaline Phosphatase 72 U/L (38-126); Anion Gap 9 mmol/L (4-12); Aspartate Amino Transferase 19 U/L (17-59); Bilirubin,Total 0.6 mg/dL (0.2-1.3); Blood Urea Nitrogen 30 mg/dL (9-20); Carbon Dioxide 26 mmol/L (22-30); Chloride 102 mmol/L (98-107); Estimated CRCL calculation 54 ml/min; Estimated Glomerular Filt Rate 46; Glucose 148 mg/dL (65-110); Potassium 4.2 mmol/L (3.4-5.0); Sodium 137 mmol/L (137-145)
[2024-06-27 06:44] LABS: Hematocrit 40.7 % (42.0-52.0); Mean Corpuscular HGB Conc 31.9 g/dl (32-36); Mean Corpuscular Hemoglobin 30.7 pg (26-34); Mean Corpuscular Volume 96.2 fl (80-100); Platelet Count Result 209 k/mm3 (150-375); Red Blood Count 4.23 M/mm3 (4.6-6.20); Red Cell Distribution Width 13.2 % (11.5-14.5); White Blood Count 7.3 K/mm3 (4.5-10.0)
[2024-06-27 07:40] LABS: Glucose Point of Care 151 mg/dl (65-105)
[2024-06-27] MEDS: glipiZIDE XL 5 MG TABCR 10 MG PO (08:56)
[2024-06-27] MEDS: PIOGLITAZONE HCL 30 MG TABLET PO (08:56)
[2024-06-27] MEDS: ATORVASTATIN 20 MG TABLET PO (08:56)
[2024-06-27] MEDS: CHOLECALCIFEROL 1,000 UNITS TABLET 2000 UNITS PO ×2 (08:56→16:57)
[2024-06-27] MEDS: VITAMIN B COMPLEX CAPSULE 1 CAP PO (08:56)
[2024-06-27] MEDS: MULTIVITAMINS THERAPEUTIC TAB (*BKC) 1 TABLET PO (08:57)
[2024-06-27] MEDS: IRBESARTAN 150 MG TABLET 300 MG PO (08:57)
[2024-06-27] MEDS: EMPAGLIFLOZIN 10 MG TABLET PO (08:57)
[2024-06-27] MEDS: ENOXAPARIN 40 MG/0.4 ML SYRINGE SUB-Q (08:59)
--- NOTE | 2024-06-27 09:31 | P.PNIM_ITS ---
Progress Note: A&P Assessment and Plan (1) Diabetic foot infection: Code(s): E11.628 - Type 2 diabetes mellitus with other skin complications; L08.9 - Local infection of the skin and subcutaneous tissue, unspecified Status: Acute Assessment and Plan: Patient had recent surgery for claw foot with Podiatry presented with swelling and erythema worsening for the last 2 days over right lower extremity patient r eports he only took his oral antibiotics prescribed for 1 day and was told by durable medical equipment repairer to come to the emergency room for IV antibiotics * Blood cultures NGTD * Wound culture unobtainable due to no open wound * foot XR: 1. No specific evidence of osteomyelitis. 2. Polyarticular osteoarthritis. * started on cefepime, metronidazole, and vancomycin on 06/25 * Recommended duration of antibiotic therapy for 7-10 days. * analgesics and antipyretics p.r.n. 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 Continue Jardiance, Actos, and glipizide. * correct regimen ordered - low/high dose TIDWM * A1C 6.9% on 02/01/2024 will stop PO home meds and start low SS for a close bs control (3) Primary hypertension: Code(s): I10 - Essential (primary) hypertension Status: Chronic Assessment and Plan: * chronic * continue home medications: Irbesartan * reviewed, Monitor BP per unit protocol Plan Code status: Full code per patient DVT prophylaxis: Lovenox Stress ulcer prophylaxis: Protonix 40 daily PT/OT notes: Ambulatory Disposition: Patient continues admission for cellulitis to right lower extremity continue with current IV antibiotic therapy can hopefully deescalate to oral therapy if symptoms improve. Patient is ambulatory and plan is to return home when medically stable Time Spent With Patient Time with patient: 25 - 35 minutes Subjective Date/time seen: 06/27/24 09:31 Interval history: Patient is a 73-year-old male who is admitted for cellulitis of the right lower extremity post surgical repair of claw foot. 06/26/24: Assumed Care Patient denies CP, SOB , N/V and minimal pain to RLE. Erythema improving from original markings and patient reports edema improved. 06/27 assuming care. pt is seen and examined. Reports redness and swelling improved. Feeling ok, pain is controlled. Reports numbness but chronic. Review of Systems Review of Systems: All systems reviewed & are unremarkable except as noted in HPI and below Exam Const: General: comfortable and no acute distress Other: , male, nontoxic appearance HENMT: Face/Nose/Sinus: Normal nares present Mouth: Yes moist mucous membranes Eyes: General: appearance normal, both eyes and all related structures Sclera: sclerae normal Pupils: Equal, round and reactive pupils present EOM: EOMs intact bilaterally Neck: Neck: supple Resp: Effort & Inspection: normal respiratory effort Auscultation: clear to auscultation bilaterally Cardio: Rate: regular rate Rhythm: regular rhythm Other: S1-S2 present without murmur, rub, ectopy GI: Auscultation: normal bowel sounds Other: Abdomen soft, nondistended, nontender. Normoactive bowel sounds in all quadrants. Skin: General skin exam: erythema (RLE) Other: Erythema, tenderness, warmth, and edema noted to dorsum of right foot. Edema is nonpitting. Erythema marked and redness improving. Neuro: Cranial nerves: Yes Equal, round and reactive pupils present Speech: normal speech Motor exam (neuro): 5/5 motor strength present throughout Sensory Exam: normal sensation Other: A&O x4 Extrem: General: normal exam except as noted (See skin exam) and edema right Other: DP 2+ bilateral Psych: Mental Status: mental status grossly normal Affect: normal affect Other: Good insight and judgment, pleasant Objective Data Vital Signs Vital Signs: Vital Signs - 24 hr 06/26/24 14:00 06/26/24 20:00 06/26/24 21:07 Temperature 98.2 F 98.2 F Pulse Rate 88 87 Respiratory Rate 20 18 Blood Pressure 130/60 122/72 Pulse Oximetry 97 98 Oxygen Delivery Room Air 06/26/24 22:58 06/27/24 05:41 Temperature 97.8 F Pulse Rate 88 90 Respiratory Rate 18 Blood Pressure 123/66 Pulse Oximetry 94 98 Oxygen Delivery Intake/Output Intake/Output: Intake & Output 06/24/24 06/25/24 06/26/24 06/27/24 23:59 23:59 23:59 23:59 Intake Total 830 2980 450 Output Total 550 Balance 280 2980 450 Meds/Results Medications: Active Medications Generic Name Dose Route Start Last Admin Trade Name Freq PRN Reason Stop Dose Admin Acetaminophen 650 mg 06/25/24 16:03 Acetaminophen 325 Mg Tablet PO Q4H PRN Mild Pain (1-3) or Fever Hydrocodone Bitart/Acetaminophen 1 tab 06/26/24 00:02 Hydrocodone/Acetaminophen (*Crx) 5-325 Mg Tablet PO Q6H PRN Pain Rated 4-6 Atorvastatin Calcium 20 mg 06/26/24 09:00 06/27/24 08:56 Atorvastatin 20 Mg Tablet PO 20 mg DAILY BOGDAN Administration Dextrose 12.5 gm 06/25/24 23:59 Dextrose 50% 25 Gm/50 Ml Syringe IV PUSH PRN PRN Hypoglycemia Protocol Empagliflozin 10 mg 06/26/24 09:00 06/27/24 08:57 Empagliflozin 10 Mg Tablet PO 10 mg DAILY BOGDAN Administration Enoxaparin Sodium 40 mg 06/26/24 09:00 06/27/24 08:59 Enoxaparin 40 Mg/0.4 Ml Syringe SUB-Q 40 mg DAILY BOGDAN Administration Glipizide 10 mg 06/26/24 09:00 06/27/24 08:56 Glipizide Xl 5 Mg Tabcr PO 10 mg DAILY BOGDAN Administration Glucagon 1 mg 06/25/24 23:59 Glucagon For Inj 1 Mg Vial IM PRN PRN Hypoglycemia Protocol Glucose 15 gm 06/25/24 23:59 Glucose Oral Gel 15 Gm Of Glucse In 37.5 Gm Tube PO PRN PRN Hypoglycemia Protocol Vancomycin HCl 1,500 mg in 500 mls @ 250 mls/hr 06/26/24 12:00 06/26/24 14:33 Vancomycin 1,500 Mg/Ns 500 Ml IVPB Infused Q24H BOGDAN Infusion Cefepime HCl 1 gm in 50 mls @ 100 mls/hr 06/26/24 01:00 06/27/24 01:02 Maxipime 1 Gm/Ns 50 Ml IVPB Infused Q12H BOGDAN Infusion Metronidazole 500 mg in 100 mls @ 100 mls/hr 06/26/24 01:00 06/27/24 08:56 Flagyl 500 Mg/Iso Soln 100 Ml IVPB 100 mls/hr Q8H BOGDAN Administration Dextrose 1,000 mls @ 100 mls/hr 06/25/24 23:59 Dextrose 5% 1,000 Ml IVPB PRN PRN Hypoglycemia Protocol Irbesartan 300 mg 06/26/24 09:00 06/27/24 08:57 Irbesartan 150 Mg Tablet PO 300 mg DAILY BOGDAN Administration Morphine Sulfate 2 mg 06/26/24 00:02 Morphine Sulfate (*Crx) 2 Mg/Ml Inj IV PUSH Q4H PRN Pain Rated 7-10 Multivitamins Therapeutic 1 tablet 06/26/24 09:00 06/27/24 08:57 Multivitamins Therapeutic Tab (*Bkc) PO 1 tablet DAILY BOGDAN Administration Ondansetron HCl 4 mg 06/25/24 16:03 Ondansetron Inj 4 Mg/2 Ml Vial IV PUSH Q4H PRN Nausea Pioglitazone HCl 30 mg 06/26/24 09:00 06/27/24 08:56 Pioglitazone Hcl 30 Mg Tablet PO 30 mg DAILY BOGDAN Administration Vitamin B Complex 1 cap 06/26/24 09:00 06/27/24 08:56 Vitamin B Complex Capsule PO 1 cap DAILY BOGDAN Administration Vitamin D 2,000 units 06/26/24 09:00 06/27/24 08:56 Cholecalciferol 1,000 Units Tablet PO 2,000 units BID BOGDAN Administration Radiology Results: ITS Impressions Foot X-Ray 06/25/24 11:24 IMPRESSION: 1. No specific evidence of osteomyelitis. 2. Polyarticular osteoarthritis. Labs Labs: Laboratory Results - last 24 hr 06/26/24 06/26/24 06/26/24 05:46 11:41 17:17 WBC 8.1 RBC 4.00 L Hgb 12.4 L Hct 37.9 L MCV 94.8 MCH 31.0 MCHC 32.7 RDW 13.1 Plt Count 211 MPV 10.2 Sodium 136 L Potassium 4.3 Chloride 102 Carbon Dioxide 24 Anion Gap 10 BUN 30 H Creatinine 1.60 H Estim Creat Clear Calc 50 Estimated GFR 43 L Glucose 109 POC Capillary Glucose 170 H 236 H Calcium 8.9 Total Bilirubin 0.7 AST 24 ALT 20 Alkaline Phosphatase 66 Total Protein 7.0 Albumin 3.6 06/26/24 06/27/24 06/27/24 19:56 05:26 07:37 WBC 7.3 RBC 4.23 L Hgb 13.0 L Hct 40.7 L MCV 96.2 MCH 30.7 MCHC 31.9 L RDW 13.2 Plt Count 209 MPV 10.0 Sodium 137 Potassium 4.2 Chloride 102 Carbon Dioxide 26 Anion Gap 9 BUN 30 H Creatinine 1.50 H Estim Creat Clear Calc 54 Estimated GFR 46 L Glucose 148 H POC Capillary Glucose 219 H 151 H Calcium 9.0 Total Bilirubin 0.6 AST 19 ALT 20 Alkaline Phosphatase 72 Total Protein 7.0 Albumin 3.7 Quality VTE Prophylaxis VTE prophylaxis: pharmacologic ordered
[2024-06-27 11:43] LABS: Glucose Point of Care 171 mg/dl (65-105)
[2024-06-27 13:43] VITALS: BP 126/47; PULSE 68; RESP 18; TEMP 36.4; O2SAT 98
[2024-06-27] MEDS: SACCHAROMYCES BOULARDII 250 MG CAPSULE PO ×2 (14:23→16:57)
[2024-06-27 16:18] LABS: Glucose Point of Care 169 mg/dl (65-105)
[2024-06-27] MEDS: metroNIDAZOLE 500 MG TABLET PO ×2 (16:56→21:07)
[2024-06-27 19:54] LABS: Glucose Point of Care 247 mg/dl (65-105)
[2024-06-27 21:18] VITALS: BP 132/54; PULSE 88; RESP 18; TEMP 36.3; O2SAT 100
[2024-06-27 22:26] VITALS: PULSE 89; O2SAT 95
[2024-06-28 01:45] VITALS: PULSE 90; O2SAT 94
[2024-06-28 05:36] VITALS: BP 131/66; PULSE 80; RESP 18; TEMP 36.4; O2SAT 97
[2024-06-28] MEDS: metroNIDAZOLE 500 MG TABLET PO ×3 (06:42→20:29)
[2024-06-28 06:44] LABS: Hematocrit 40.9 % (42.0-52.0); Hemoglobin 13.3 g/dL (14.0-18.0); Mean Corpuscular HGB Conc 32.5 g/dl (32-36); Mean Corpuscular Hemoglobin 31.4 pg (26-34); Mean Corpuscular Volume 96.5 fl (80-100); Mean Platelet Volume 9.7 fl (7.4-10.4); Platelet Count Result 218 k/mm3 (150-375); Red Blood Count 4.24 M/mm3 (4.6-6.20)
[2024-06-28 06:58] LABS: Alanine Aminotransferase 20 U/L (6-50); Albumin Level 3.8 g/dL (3.5-5.1); Alkaline Phosphatase 69 U/L (38-126); Anion Gap 9 mmol/L (4-12); Aspartate Amino Transferase 23 U/L (17-59); Bilirubin,Total 0.6 mg/dL (0.2-1.3); Blood Urea Nitrogen 25 mg/dL (9-20); Calcium 9.2 mg/dL (8.4-10.2); Carbon Dioxide 28 mmol/L (22-30); Chloride 101 mmol/L (98-107); Estimated CRCL calculation 55 ml/min; Estimated Glomerular Filt Rate 48; Glucose 125 mg/dL (65-110); Potassium 4.4 mmol/L (3.4-5.0); Sodium 138 mmol/L (137-145)
[2024-06-28 07:45] LABS: Glucose Point of Care 141 mg/dl (65-105)
--- NOTE | 2024-06-28 08:58 | P.PNIM_ITS ---
Progress Note: A&P Assessment and Plan (1) Diabetic foot infection: Code(s): E11.628 - Type 2 diabetes mellitus with other skin complications; L08.9 - Local infection of the skin and subcutaneous tissue, unspecified Status: Acute Assessment and Plan: Patient had recent surgery for claw foot with Podiatry presented with swelling and erythema worsening for the last 2 days over right lower extremity patient r eports he only took his oral antibiotics prescribed for 1 day and was told by patient office rep to come to the emergency room for IV antibiotics * Blood cultures NGTD * Wound culture unobtainable due to no open wound * foot XR: 1. No specific evidence of osteomyelitis. 2. Polyarticular osteoarthritis. * started on cefepime, metronidazole, and vancomycin on 06/25 * Recommended duration of antibiotic therapy for 7-10 days. * analgesics and antipyretics p.r.n. * podiatry will continue to follow * trend white count Normal on admission continue antibiotics- downgrade to PO-bacrum and flagyl BC prelim negative erythema is imporved. 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 Continue Jardiance, Actos, and glipizide. * correct regimen ordered - low/high dose TIDWM * A1C 6.9% on 02/01/2024 will stop PO home meds and start low SS for a close bs control BS 200's- will add 5 units of lantus at bedside for a tighter BS control (3) Primary hypertension: Code(s): I10 - Essential (primary) hypertension Status: Chronic Assessment and Plan: * chronic * continue home medications: Irbesartan * reviewed, Monitor BP per unit protocol Plan Code status: Full code per patient DVT prophylaxis: Lovenox Stress ulcer prophylaxis: Protonix 40 daily PT/OT notes: Ambulatory Disposition: Patient continues admission for cellulitis to right lower extremity continue with current IV antibiotic therapy can hopefully deescalate to oral therapy if symptoms improve. Patient is ambulatory and plan is to return home when medically stable Anticipate discharge tomorrow if stable overnight. Time Spent With Patient Time with patient: 25 - 35 minutes Subjective Date/time seen: 06/28/24 08:58 Interval history: Patient is a 73-year-old male who is admitted for cellulitis of the right lower extremity post surgical repair of claw foot. 06/26/24: Assumed Care Patient denies CP, SOB , N/V and minimal pain to RLE. Erythema improving from original markings and patient reports edema improved. 06/27 assuming care. pt is seen and examined. Reports redness and swelling improved. Feeling ok, pain is controlled. Reports numbness but chronic. 06/28 pt is seen and examined. Antibiotics downgraded yesterday to PO- bactrum and flagyl. Reddness and swelling improved. Review of Systems Review of Systems: All systems reviewed & are unremarkable except as noted in HPI and below Exam Const: General: comfortable and no acute distress Other: , male, nontoxic appearance HENMT: Face/Nose/Sinus: Normal nares present Mouth: Yes moist mucous membranes Eyes: General: appearance normal, both eyes and all related structures Sclera: sclerae normal Pupils: Equal, round and reactive pupils present EOM: EOMs intact bilaterally Neck: Neck: supple Resp: Effort & Inspection: normal respiratory effort Auscultation: clear to auscultation bilaterally Cardio: Rate: regular rate Rhythm: regular rhythm Other: S1-S2 present without murmur, rub, ectopy GI: Auscultation: normal bowel sounds Other: Abdomen soft, nondistended, nontender. Normoactive bowel sounds in all quadrants. Skin: General skin exam: erythema (RLE) Other: Erythema, tenderness, warmth, and edema noted to dorsum of right foot. Edema is nonpitting. Erythema marked and redness improving. Neuro: Cranial nerves: Yes Equal, round and reactive pupils present Speech: normal speech Motor exam (neuro): 5/5 motor strength present throughout Sensory Exam: normal sensation Other: A&O x4 Extrem: General: normal exam except as noted (See skin exam) and edema right Other: DP 2+ bilateral Psych: Mental Status: mental status grossly normal Affect: normal affect Other: Good insight and judgment, pleasant Objective Data Vital Signs Vital Signs: Vital Signs - 24 hr 06/27/24 13:43 06/27/24 20:00 06/27/24 21:18 Temperature 97.6 F 97.3 F L Pulse Rate 68 88 Respiratory Rate 18 18 Blood Pressure 126/47 L 132/54 L Pulse Oximetry 98 100 Oxygen Delivery Room Air 06/27/24 22:26 06/28/24 01:45 06/28/24 05:36 Temperature 97.6 F Pulse Rate 89 90 80 Respiratory Rate 18 Blood Pressure 131/66 Pulse Oximetry 95 94 97 Oxygen Delivery Intake/Output Intake/Output: Intake & Output 06/25/24 06/26/24 06/27/24 06/28/24 23:59 23:59 23:59 23:59 Intake Total 830 2980 2270 640 Output Total 550 Balance 280 2980 2270 640 Meds/Results Medications: Active Medications Generic Name Dose Route Start Last Admin Trade Name Freq PRN Reason Stop Dose Admin Acetaminophen 650 mg 06/25/24 16:03 Acetaminophen 325 Mg Tablet PO Q4H PRN Mild Pain (1-3) or Fever Hydrocodone Bitart/Acetaminophen 1 tab 06/26/24 00:02 Hydrocodone/Acetaminophen (*Crx) 5-325 Mg Tablet PO Q6H PRN Pain Rated 4-6 Atorvastatin Calcium 20 mg 06/26/24 09:00 06/27/24 08:56 Atorvastatin 20 Mg Tablet PO 20 mg DAILY BOGDAN Administration Dextrose 12.5 gm 06/27/24 09:32 Dextrose 50% 25 Gm/50 Ml Syringe IV PUSH PRN PRN Hypoglycemia Protocol Empagliflozin 10 mg 06/26/24 09:00 06/27/24 08:57 Empagliflozin 10 Mg Tablet PO 10 mg DAILY BOGDNA Administration Enoxaparin Sodium 40 mg 06/26/24 09:00 06/27/24 08:59 Enoxaparin 40 Mg/0.4 Ml Syringe SUB-Q 40 mg DAILY BOGDAN Administration Glucagon 1 mg 06/27/24 09:32 Glucagon For Inj 1 Mg Vial IM PRN PRN Hypoglycemia Protocol Glucose 15 gm 06/27/24 09:32 Glucose Oral Gel 15 Gm Of Glucse In 37.5 Gm Tube PO PRN PRN Hypoglycemia Protocol Dextrose 1,000 mls @ 100 mls/hr 06/27/24 09:32 Dextrose 5% 1,000 Ml IVPB PRN PRN Hypoglycemia Protocol Insulin Aspart 2 - 5 units 06/27/24 12:00 06/27/24 16:33 Insulin Aspart (*Bkc) 100 Units/Ml SUB-Q Not Given TIDWM [facility] Protocol Irbesartan 300 mg 06/26/24 09:00 06/27/24 08:57 Irbesartan 150 Mg Tablet PO 300 mg DAILY BOGDAN Administration Metronidazole 500 mg 06/27/24 16:00 06/28/24 06:42 Metronidazole 500 Mg Tablet PO 500 mg Q8HR BOGDAN Administration Morphine Sulfate 2 mg 06/26/24 00:02 Morphine Sulfate (*Crx) 2 Mg/Ml Inj IV PUSH Q4H PRN Pain Rated 7-10 Multivitamins Therapeutic 1 tablet 06/26/24 09:00 06/27/24 08:57 Multivitamins Therapeutic Tab (*Bkc) PO 1 tablet DAILY BOGDAN Administration Ondansetron HCl 4 mg 06/25/24 16:03 Ondansetron Inj 4 Mg/2 Ml Vial IV PUSH Q4H PRN Nausea Saccharomyces Boulardii 250 mg 06/27/24 13:00 06/27/24 16:57 Saccharomyces Boulardii 250 Mg Capsule PO 250 mg TID BOGDAN Administration Trimethoprim/Sulfamethoxazole 1 tab 06/28/24 09:00 Sulfamethoxazole/Trimethoprim 800/160 Mg Ds Tablet PO Q12HR BOGDAN Vitamin B Complex 1 cap 06/26/24 09:00 06/27/24 08:56 Vitamin B Complex Capsule PO 1 cap DAILY BOGDAN Administration Vitamin D 2,000 units 06/26/24 09:00 06/27/24 16:57 Cholecalciferol 1,000 Units Tablet PO 2,000 units BID BOGDAN Administration Radiology Results: ITS Impressions Foot X-Ray 06/25/24 11:24 IMPRESSION: 1. No specific evidence of osteomyelitis. 2. Polyarticular osteoarthritis. Labs Labs: Laboratory Results - last 24 hr 06/27/24 06/27/24 06/27/24 11:33 16:00 19:47 WBC RBC Hgb Hct MCV MCH MCHC RDW Plt Count MPV Sodium Potassium Chloride Carbon Dioxide Anion Gap BUN Creatinine Estim Creat Clear Calc Estimated GFR Glucose POC Capillary Glucose 171 H 169 H 247 H Calcium Total Bilirubin AST ALT Alkaline Phosphatase Total Protein Albumin 06/28/24 06/28/24 06:12 07:28 WBC 7.0 RBC 4.24 L Hgb 13.3 L Hct 40.9 L MCV 96.5 MCH 31.4 MCHC 32.5 RDW 13.0 Plt Count 218 MPV 9.7 Sodium 138 Potassium 4.4 Chloride 101 Carbon Dioxide 28 Anion Gap 9 BUN 25 H Creatinine 1.46 H Estim Creat Clear Calc 55 Estimated GFR 48 L Glucose 125 H POC Capillary Glucose 141 H Calcium 9.2 Total Bilirubin 0.6 AST 23 ALT 20 Alkaline Phosphatase 69 Total Protein 7.0 Albumin 3.8 Quality VTE Prophylaxis VTE prophylaxis: pharmacologic ordered
[2024-06-28] MEDS: CHOLECALCIFEROL 1,000 UNITS TABLET 2000 UNITS PO ×2 (09:10→18:42)
[2024-06-28] MEDS: MULTIVITAMINS THERAPEUTIC TAB (*BKC) 1 TABLET PO (09:13)
[2024-06-28] MEDS: IRBESARTAN 150 MG TABLET 300 MG PO (09:13)
[2024-06-28] MEDS: SACCHAROMYCES BOULARDII 250 MG CAPSULE PO ×3 (09:13→18:42)
[2024-06-28] MEDS: VITAMIN B COMPLEX CAPSULE 1 CAP PO (09:13)
[2024-06-28] MEDS: EMPAGLIFLOZIN 10 MG TABLET PO (09:14)
[2024-06-28] MEDS: SULFAMETHOXAZOLE/TRIMETHOPRIM 800/160 MG DS TABLET 1 TAB PO ×2 (09:14→20:29)
[2024-06-28] MEDS: ATORVASTATIN 20 MG TABLET PO (09:14)
[2024-06-28 11:33] LABS: Glucose Point of Care 239 mg/dl (65-105)
[2024-06-28] MEDS: INSULIN ASPART (*BKC) 100 UNITS/ML SUB-Q (12:31)
[2024-06-28] MEDS: ENOXAPARIN 40 MG/0.4 ML SYRINGE SUB-Q (12:33)
[2024-06-28 14:00] VITALS: BP 124/77; PULSE 85; RESP 18; TEMP 36.5; O2SAT 98
[2024-06-28 16:39] LABS: Glucose Point of Care 116 mg/dl (65-105)
[2024-06-28] MEDS: INSULIN GLARGINE (*BKC) 100 UNITS/ML SUB-Q (20:30)
[2024-06-28 20:58] LABS: Glucose Point of Care 239 mg/dl (65-105)
[2024-06-28 22:53] VITALS: PULSE 88; O2SAT 95
[2024-06-29 01:38] VITALS: BP 136/53; PULSE 89; RESP 16; TEMP 36.9; O2SAT 98
[2024-06-29] MEDS: metroNIDAZOLE 500 MG TABLET PO (05:27)
[2024-06-29 05:28] VITALS: BP 134/57; PULSE 81; RESP 17; TEMP 36.8; O2SAT 97
[2024-06-29 06:52] LABS: Hematocrit 39.8 % (42.0-52.0); Hemoglobin 12.9 g/dL (14.0-18.0); Mean Corpuscular HGB Conc 32.4 g/dl (32-36); Mean Corpuscular Hemoglobin 30.7 pg (26-34); Mean Corpuscular Volume 94.8 fl (80-100); Mean Platelet Volume 9.5 fl (7.4-10.4); Platelet Count Result 228 k/mm3 (150-375); Red Cell Distribution Width 12.9 % (11.5-14.5); White Blood Count 7.5 K/mm3 (4.5-10.0)
[2024-06-29 07:10] LABS: Alanine Aminotransferase 30 U/L (6-50); Albumin Level 3.8 g/dL (3.5-5.1); Alkaline Phosphatase 72 U/L (38-126); Anion Gap 13 mmol/L (4-12); Aspartate Amino Transferase 38 U/L (17-59); Bilirubin,Total 0.4 mg/dL (0.2-1.3); Blood Urea Nitrogen 25 mg/dL (9-20); Calcium 9.2 mg/dL (8.4-10.2); Carbon Dioxide 23 mmol/L (22-30); Chloride 101 mmol/L (98-107); Estimated CRCL calculation 52 ml/min; Estimated Glomerular Filt Rate 44; Glucose 161 mg/dL (65-110); Potassium 4.2 mmol/L (3.4-5.0); Sodium 137 mmol/L (137-145)
[2024-06-29 07:51] VITALS: PULSE 81; RESP 17; O2SAT 97
[2024-06-29] MEDS: VITAMIN B COMPLEX CAPSULE 1 CAP PO (08:41)
[2024-06-29] MEDS: ATORVASTATIN 20 MG TABLET PO (08:41)
[2024-06-29] MEDS: CHOLECALCIFEROL 1,000 UNITS TABLET 2000 UNITS PO (08:41)
[2024-06-29] MEDS: IRBESARTAN 150 MG TABLET 300 MG PO (08:41)
[2024-06-29] MEDS: EMPAGLIFLOZIN 10 MG TABLET PO (08:42)
[2024-06-29] MEDS: SACCHAROMYCES BOULARDII 250 MG CAPSULE PO (08:42)
[2024-06-29] MEDS: MULTIVITAMINS THERAPEUTIC TAB (*BKC) 1 TABLET PO (08:42)
[2024-06-29] MEDS: SULFAMETHOXAZOLE/TRIMETHOPRIM 800/160 MG DS TABLET 1 TAB PO (08:42)
[2024-06-29 08:45] LABS: Glucose Point of Care 238 mg/dl (65-105)
--- NOTE | 2024-06-29 09:39 | P.DS_ITS ---
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 No specific evidence of osteomyelitis. 2. Polyarticular osteoarthritis. * started on cefepime, metronidazole, and vancomycin on 06/25 * Recommended duration of antibiotic therapy for 7-10 days. * analgesics and antipyretics p.r.n. * podiatry following * trend white count Normal on admission continue antibiotics- downgrade to PO-bactrum and flagyl 06/27 BC prelim negative erythema is improved. Home with remaining RX for flagyl and bactrum # t2dm * hypoglycemia protocol * POC blood glucose ACHS * home medication: Hold metformin. Continue Jardiance, Actos, and glipizide. * correct regimen ordered - low/high dose TIDWM * A1C 6.9% on 02/01/2024 no changes to home meds Status at Discharge Functional status at discharge: independent ambulation Overall status at discharge: patient is progressing back to baseline Time Spent with Patient Time attestation: Total time spent providing and/or coordinating discharge services: Time spent: Greater than 30 minutes Exam Const: General: comfortable and no acute distress Other: , male, nontoxic appearance HENMT: Face/Nose/Sinus: Normal nares present Mouth: Yes moist mucous membranes Eyes: General: appearance normal, both eyes and all related structures Sclera: sclerae normal Pupils: Equal, round and reactive pupils present EOM: EOMs intact bilaterally Neck: Neck: supple Resp: Effort & Inspection: normal respiratory effort Auscultation: clear to auscultation bilaterally Cardio: Rate: regular rate Rhythm: regular rhythm Other: S1-S2 present without murmur, rub, ectopy GI: Auscultation: normal bowel sounds Other: Abdomen soft, nondistended, nontender. Normoactive bowel sounds in all quadrants. Skin: General skin exam: erythema (RLE) Other: Erythema, tenderness, warmth, and edema noted to dorsum of right foot. Edema is nonpitting. Erythema marked and redness improving. Neuro: Cranial nerves: Yes Equal, round and reactive pupils present Speech: normal speech Motor exam (neuro): 5/5 motor strength present throughout Sensory Exam: normal sensation Other: A&O x4 Extrem: General: normal exam except as noted (See skin exam) and edema right Other: DP 2+ bilateral Psych: Mental Status: mental status grossly normal Affect: normal affect Other: Good insight and judgment, pleasant DS: Data Data Completed and Pending Completed studies during hospitalization: xray Labs on day of discharge: Labs from last 24 hours 06/29/24 06/29/24 06/28/24 08:06 06:32 20:28 WBC 7.5 RBC 4.20 L Hgb 12.9 L Hct 39.8 L MCV 94.8 MCH 30.7 MCHC 32.4 RDW 12.9 Plt Count 228 MPV 9.5 Sodium 137 Potassium 4.2 Chloride 101 Carbon Dioxide 23 Anion Gap 13 H BUN 25 H Creatinine 1.56 H Estim Creat Clear Calc 52 Estimated GFR 44 L Glucose 161 H POC Capillary Glucose 238 H 239 H Calcium 9.2 Total Bilirubin 0.4 AST 38 ALT 30 Alkaline Phosphatase 72 Total Protein 7.0 Albumin 3.8 06/28/24 06/28/24 16:28 11:28 WBC RBC Hgb Hct MCV MCH MCHC RDW Plt Count MPV Sodium Potassium Chloride Carbon Dioxide Anion Gap BUN Creatinine Estim Creat Clear Calc Estimated GFR Glucose POC Capillary Glucose 116 H 239 H Calcium Total Bilirubin AST ALT Alkaline Phosphatase Total Protein Albumin Preliminary micro results at discharge 06/25/24 11:40 Blood Culture - Preliminary Blood 06/25/24 11:50 Blood Culture - Preliminary Blood Discharge Plan Discharge Attending physician on discharge: Aguilar Gunn Consulting providers: Wes Platt Jr.; Jennie Young Discharging Clinician: Radha Cabrera Patient Disposition: Home, Self-Care Activity: may shower Diet: diabetic Discharge Instructions: Please finish antibiotics as prescribed. Monitor cellulitis carefully- watch for increased redness, swelling, chills- if any of these happens- report to ED. F/u with your courtroom deputy or calendar clerk as instructed. Patient Instructions: Antibiotic Form Patient Language: Greek Stand Alone Forms: General Discharge Information Follow-up/Referrals: Dayana Sosa MD [Primary Care Provider] - 2 Weeks Wes Platt Jr., DPM [Physician] - 1 Week Discharge Medications: New hydrocodone-acetaminophen 5-325 mg Tablet 1 tablet PO Q6H PRN (Reason: Pain Rated 4-6) Qty: 6 0RF metronidazole 500 mg Tablet 500 mg PO Q8HR Qty: 15 0RF sulfamethoxazole-trimethoprim 800-160 mg Tablet 1 tab PO Q12HR Qty: 10 0RF Continued cholecalciferol (vitamin D3) 50 mcg (2,000 unit) capsule 50 mcg PO BID multivitamin Tablet 1 tablet PO DAILY vitamin B complex [B Complex-Vitamin B12] Tablet 1 tablet PO DAILY metformin 500 mg tablet extended release 24 hr 1,000 mg PO BIDWMEAL Patient Comments: with morning meal and evening meal (DME) blood sugar diagnostic Strip See Rx Instructions .ROUTE .MEDSUPPLY Qty: 100 3RF Rx Instructions: Use to take blood sugar daily while fasting Jardiance 10 mg tablet 10 mg PO DAILY Qty: 90 3RF atorvastatin 20 mg tablet 20 mg PO DAILY Qty: 90 3RF irbesartan 300 mg tablet 300 mg PO DAILY Qty: 90 1RF glipizide 10 mg tablet extended release 24hr 10 mg PO DAILY Qty: 90 3RF pioglitazone 30 mg tablet 30 mg PO DAILY Qty: 90 3RF Date of admission: 06/25/24 16:03 Primary Care Provider: Dayana Sosa Admitting Provider: Kolton Robbins Attending physician on admission: Kolton Robbins Condition: Stable Quality VTE Prophylaxis VTE prophylaxis: pharmacologic ordered Hospitalist MIPS Heart Failure (Exclusion) Patient has history of Heart Transplant or Left Ventricular Assistive Device?: No IF YES, STOP HERE Heart Failure (Qualifier) Patient has current or prior documentation of LVEF less than or equal to 40%, or mod/servere depressed LVSF?: No IF NO, STOP HERE
[2024-06-29 10:04] VITALS: O2SAT 95
== END 2024-06-29 10:40 | disposition home or self-care (01) ==
LOC: ANHED 13:59 → ANH3MEDSUR 06-26 08:13
PROVIDERS: Nurse Practitioner Family; Student in an Organized Health Care Education/Training Program; Admitting Provider Internal Medicine; Emergency Provider Student in an Organized Health Care Education/Training Program; PCP Family Medicine; Visit Provider General Practice
DX: L03.115 Cellulitis of right lower limb (principal); E11.628 Type 2 diabetes mellitus with other skin complications; L08.9 Local infection of the skin and subcutaneous tissue, unspecified; E11.21 Type 2 diabetes mellitus with diabetic nephropathy; I10 Essential (primary) hypertension; E78.5 Hyperlipidemia, unspecified; Z98.890 Other specified postprocedural states; Z85.46 Personal history of malignant neoplasm of prostate; Z87.891 Personal history of nicotine dependence; Z90.79 Acquired absence of other genital organ(s); Z79.84 Long term (current) use of oral hypoglycemic drugs; Z79.899 Other long term (current) drug therapy
CPT/HCPCS: 36415; 73630; 80053; 82565; 82948; 83036; 85025; 85027; 85652; 86140; 87040; 96365; 96366; 96367; 96372; 96375; 96376; 99285; A9270; G0378; J0692; J0696; J1650; J1815; J1836; J3370

== ENCOUNTER 2025-02-24 12:27 | Emergency (ER) | payer MEDICARE, SELFPAY ==
--- NOTE | 2025-02-24 12:28 | ED.SKABFB ---
HPI - Skin/Abscess/Foreign Bdy General Chief complaint: Extremity Injury, Lower Stated complaint: Left Leg Swelling Time Seen by Provider: 02/24/25 12:27 Source: patient Mode of arrival: ambulatory Limitations: no limitations History of Present Illness HPI narrative: Brandan is a 74 year old male patient presenting to the clinic today with c/o left leg/calf swelling x 3-4 days. States swelling goes down when he elevates his left leg. History of prostate cancer with prostatectomy, cellulitis, type 2 diabetes, hyperlipidemia, and hypertension. No history of blood clots in the past. Denies any fevers, chills, body aches, chest pain, or shortness of breath. No known injury. Denies any pain currently- states it is just uncomfortable due to the swelling. Related Data Home Medications ?Medication ?Instructions ?Recorded ?Confirmed ?Last Taken ?Type cholecalciferol (vitamin D3) 50 50 mcg PO BID 05/06/20 06/25/24 06/25/24 History mcg (2,000 unit) capsule multivitamin 1 tablet PO DAILY 05/06/20 06/25/24 06/25/24 History vitamin B complex (B 1 tablet PO DAILY 05/06/20 06/25/24 06/25/24 History Complex-Vitamin B12 tablet) metformin 500 mg tablet,extended 1,000 mg PO BIDWMEAL 06/25/24 06/25/24 06/25/24 History release 24 hr febuxostat 80 mg tablet mg 02/24/25 Unknown History Allergies Allergy/AdvReac Type Severity Reaction Status Date / Time No Known Allergies Allergy Mild Verified 02/24/25 12:28 Review of Systems Review of Systems: Pertinent positives per HPI. Patient denies any fever, chills, rash, headache, visual changes, dizziness, cough, runny nose, sore throat, shortness of breath, chest pain, palpitations, nausea, vomiting, diarrhea, constipation, abdominal pain, or any urinary issues. [facility] Past Medical History Medical History History of prostate cancer Sleep apnea Hyperlipidemia HTN (hypertension) Diabetes Surgical History Surgical History History of prostatectomy age 42 Family History Family History Mother Diabetes mellitus Father Malignant neoplasm of prostate Family history of dementia Sibling Malignant neoplasm of prostate Grandparent Malignant neoplasm of prostate Social History Social History Smoking status: Former smoker Second hand tobacco smoke exposure: No Alcohol intake: current Alcohol use details: Occasional. Substance use: never Substance use type: does not use Do You Feel Safe in your Home?: Yes Lack of Transportation: No Lack of Food: Never True Current Housing: I Have Housing Concerned About Future Housing: No Difficulty Paying Gas/Electric Bills: No Difficulty Paying for Meds: No Currently Unemployed: No Education: High School Diploma/GED Difficulty w/ Childcare or Family Care: No Living arrangements: with family Occupation/Education: retired Gender identity (if verbalized by the patient): Male Spiritual care concerns: No Comments At the time of my signature, I reviewed and agree with the nursing past medical, surgical, social, and family history. There is no relevant family history pertinent to the patient complaint. Exam Narrative: General: Well-developed,obese, in no apparent distress Head: Normocephalic, atraumatic. Cardio: Regular rate and rhythm, s1 and s2 normal, no murmur appreciated. Resp: Clear to auscultation bilaterally, no rhonchi, rales, wheezing or rubs. Musculoskeletal: No deformity, non-tender to palpation, grossly normal range of motion, muscle strength strong and equal, peripheral pulse strong, calf swelling with 2+ pitting edema the lower extremity, swelling of the calf when compared to the right calf, negative homans, mild redness and erythema to the right medial lower leg, no cyanosis, normal gait and station Course Course Emergency Course: Portions of this record may have been created with voice recognition software. Level of Care: Express Care Visit Vital Signs Vital signs: Vital signs reviewed Transfer Transfered to: [facility] Transportation: Other (Private car) Transfer rationale: Higher level of care- left leg/calf swelling R/O DVT Accepting physician: Pedro Transfer comments: Private car MDM - Skin/Abscess/Foreign Bdy MDM Narrative Medical decision making narrative: At the time of visit patient is resting comfortably on the exam table. Patient appears to be nontoxic. C/o left leg/calf swelling x 3-4 days. States swelling goes down when he elevates his left leg. History of cellulitis, type 2 diabetes, hyperlipidemia, and hypertension. No history of blood clots in the past. Denies any fevers, chills, body aches, chest pain, or shortness of breath. No known injury. Denies any pain currently- states it is just uncomfortable to the swelling. Been sitting in the deer stand the past 5 days. On exam patient has clear lung sounds and heart rates regular rate and rhythm, left lower leg with 2+ pitting edema, slight redness with erythema to the left medial distal leg, negative Radha sign. Wells criteria for DVT completed putting patient at high risk for DVT. Plan: Recommend transfer to the ED to r/o blood clot. Patient understands risk of blood clot and is agreeable to transfer to [facility] for further evaluation. Contacted Pedro at [facility] and she accepts patient for transfer. Patient to go by private car. Well criteria for DVT: 4?points High risk group for DVT. ?Likely? according to Wells? DVT studies. Differential Diagnosis Differential diagnosis: Likely abscess of skin or subcutaneous tissue, cellulitis and other (DVT, lower extremity edema, peripheral vascular disease, venous insufficiency) Discharge Plan Discharge Clinical Impression: Swelling of left lower extremity Patient Disposition: Acute Care Hospital Condition: Stable Patient Language: Portuguese Prescriptions: No Action febuxostat 80 mg tablet cholecalciferol (vitamin D3) 50 mcg (2,000 unit) capsule 50 mcg PO BID multivitamin Tablet 1 tablet PO DAILY vitamin B complex [B Complex-Vitamin B12] Tablet 1 tablet PO DAILY metformin 500 mg tablet extended release 24 hr 1,000 mg PO BIDWMEAL Patient Comments: with morning meal and evening meal hydrocodone-acetaminophen 5-325 mg Tablet 1 tablet PO Q6H PRN (Reason: Pain Rated 4-6) Qty: 6 0RF (DME) blood sugar diagnostic Strip See Rx Instructions .ROUTE .MEDSUPPLY Qty: 100 3RF Rx Instructions: Use to take blood sugar daily while fasting atorvastatin 20 mg tablet 20 mg PO DAILY Qty: 90 3RF glipizide 10 mg tablet extended release 24hr 10 mg PO DAILY Qty: 90 3RF pioglitazone 30 mg tablet 30 mg PO DAILY Qty: 90 3RF irbesartan 300 mg tablet 300 mg PO DAILY Qty: 90 1RF Jardiance 10 mg tablet 10 mg PO DAILY Qty: 90 3RF Follow-up/Referrals: UNKNOWN,DOCTOR [Non-Staff] Time of Disposition: 12:45 Quality NIHSS Nursing Documentation ED NIHSS nursing documentation: reviewed/agree
[2025-02-24 12:34] VITALS: BP 177/71; PULSE 65; RESP 18; TEMP 36.7; O2SAT 99
--- OUTSIDE RECORDS SUMMARY | 2025-02-24 13:49 | XMS_ITS | Clinical Summary ---
Author Organization [facility] Address [address] [place] [address] Phone Care Team Providers Care Line Fisher Name Role Phone Indio Gramajo MD Primary Care Provider [phone] Allergies No known active allergies Medications glipiZIDE [...] PO Take 1,000 mg by mouth. Active [place]-3 Fatty Acids (FISH OIL PO) Take by mouth daily. Active Family History Medical History Relation Name Comments [...] Comments Blood Pressure 156/75 05/13/2024 9:00 AM COMMUNITY SERVICE REPRESENTATIVE Pulse 62 05/13/2024 9:00 AM COMMUNITY SERVICE REPRESENTATIVE Temperature 36 C (96.8 F) 05/13/2024 9:00 AM COMMUNITY SERVICE REPRESENTATIVE Respiratory Rate 16 05/13/2024 9:00 AM COMMUNITY SERVICE REPRESENTATIVE Oxygen Saturation 100% 05/13/2024 9:00 AM COMMUNITY SERVICE REPRESENTATIVE Inhaled Oxygen Concentration - - Weight 115.7 kg (255 lb) 05/05/2024 10:16 AM COMMUNITY SERVICE REPRESENTATIVE Height 182.9 cm (6') 05/05/2024 10:16 AM COMMUNITY SERVICE REPRESENTATIVE Body Mass Index 34.58 05/05/2024 10:16 AM COMMUNITY SERVICE REPRESENTATIVE Plan of Treatment Health Maintenance Due Date Last Done Comments Hepatitis C Virus (HCV) Screening 1952 Varicella Immunization (1 of 2 - 13+ 2-dose series) 1965 Cologuard 1997 Immunochemical Fecal Occult Blood 1997 Pneumococcal Immunization (5 0+ years) (1 of 1 - PCV) 2002 Respiratory Syncytial Virus (RSV) Immunization (Adult) (1 - Risk 50-74 years 1-dose series) 2002 Zoster Immunization (1 of 2) 2002 AAA Screening Ultrasound 2017 Medicare Initial AWV [id number] 04/02/2020 Influenza Immunization (#1) 2024 01/23/2023 SARS-COV-2 Immunization (2 - 2024- season) 2024 04/09/2020 Colonoscopy 05/13/2029 05/13/2024, 05/13/2024, 06/29/2020 Colorectal Cancer Screening 05/13/2029 DTaP/Tdap/Td Immunization Discontinued 2011, 04/02/1998 TdaP Immunization Completed 10/31/2011 Hepatitis B Immunization Aged Out No longer eligible based on patient's age to complete this topic Human Papillomavirus (HPV) Immunization Aged Out No longer eligible based on patient's age to complete this topic Meningococcal Immunization (ACWY) Aged Out No longer eligible based on patient's age to complete this topic Rotavirus Immunization Aged Out No lo nger eligible based on patient's age to complete this topic Procedures Procedure Name Priority Date/Time Associated Diagnosis Comments GI IMAGING - COLONOSCOPY Routine 05/13/2024 6:32 AM COMMUNITY SERVICE REPRESENTATIVE from Last 3 Months or Most Recently Relevant to Health Maintenance Results * GI IMAGING - COLONOSCOPY (05/13/2024 6:32 AM COMMUNITY SERVICE REPRESENTATIVE) Darci Villa MD IMG DIAGNOSTIC ORDERABLES Final Result from Last 3 Months or Most Recently Relevant to Health Maintenance Insurance MEDICARE C AETNA Care Teams Line Fisher Relationship Specialty Start Date End Date Indio Gramajo MD [address] [id number] PCP - General Family Medicine 05/11/20
== END 2025-02-24 12:55 | disposition short-term general hospital (02) ==
LOC: EXPBETH 12:29
PROVIDERS: Emergency Provider Nurse Practitioner Family
DX: R22.42 Localized swelling, mass and lump, left lower limb (principal); I10 Essential (primary) hypertension; E11.9 Type 2 diabetes mellitus without complications; Z79.84 Long term (current) use of oral hypoglycemic drugs; E78.5 Hyperlipidemia, unspecified; Z85.46 Personal history of malignant neoplasm of prostate; Z90.79 Acquired absence of other genital organ(s); Z87.891 Personal history of nicotine dependence
CPT/HCPCS: 99212; G0463

== ENCOUNTER 2025-02-24 13:26 | Emergency (ER) | payer MEDICARE, SELFPAY ==
--- NOTE | ~2025-02-24 | US_ITS ---
EXAMINATION:US venous doppler LE INDICATION:Left leg pain and swelling TECHNIQUE: Multiple grayscale, color flow and Doppler images of the left lower extremity deep venous systems were obtained and reviewed. COMPARISON:12/20/2006 FINDINGS: The common femoral, superficial femoral and popliteal veins demonstrate normal respiratory variation, augmentation and compressibility. Color flow is also seen within the posterior tibial, greater saphenous and profunda veins. Peroneal vein not visualized. Mildly enlarged left groin lymph node with effacement of the fatty hilum measuring 2.1 cm, likely reactive. IMPRESSION: 1: No lower extremity deep venous thrombosis. 2: Reactive lymph node measuring 2.1 cm left groin. Reviewed, dictated and finalized at location O. [facility]
[2025-02-24 13:30] VITALS: BP 210/61; PULSE 68; RESP 18; TEMP 36.3; O2SAT 99
[2025-02-24 14:42] LABS: Hematocrit 35.6 % (42.0-52.0); Hemoglobin 11.8 g/dL (14.0-18.0); Immature Granulocyte Percent A 0.2 % (0-0.5); Lymphocytes Absolute Auto 1.79 K/mm3 (0.9-3.2); Mean Corpuscular HGB Conc 33.1 g/dl (32-36); Mean Corpuscular Hemoglobin 31.5 pg (26-34); Mean Corpuscular Volume 94.9 fl (80-100); Nucleated Red Blood Cells Absolute Auto 0.000 K/mm3 (0.0-0.012); Nucleated Red Blood Cells Perc 0.0 % (0.0-0.2); Platelet Count Result 196 k/mm3 (150-375); Red Blood Count 3.75 M/mm3 (4.6-6.20); White Blood Count 6.1 K/mm3 (4.5-10.0)
[2025-02-24] MEDS: ceFAZolin 1 GM in SODIUM CHLORIDE 0.9% IV 50 ML 100 ML IVPB (14:44)
[2025-02-24 14:54] LABS: Anion Gap 7 mmol/L (4-12); Blood Urea Nitrogen 30 mg/dL (9-20); CRP < 0.5 mg/dL (<1.0); Calcium 9.2 mg/dL (8.4-10.2); Carbon Dioxide 25 mmol/L (22-30); Chloride 105 mmol/L (98-107); Estimated CRCL calculation 68 ml/min; Estimated Glomerular Filt Rate 60; Glucose 112 mg/dL (65-110); Potassium 4.3 mmol/L (3.4-5.0); Sodium 137 mmol/L (137-145)
--- OUTSIDE RECORDS SUMMARY | 2025-02-24 15:05 | XMS_ITS | Clinical Summary ---
Author Organization [facility] Address [address] [place] [address] Phone Care Team Providers Care Auto Repair Technician Name Role Phone Indio Gramajo MD Primary Care Provider [phone] Allergies No known active allergies Medications glipiZIDE [...] PO Take 1,000 mg by mouth. Active [place]-3 Fatty Acids (FISH OIL PO) Take by [...] Comments Blood Pressure 156/75 05/13/2024 9:00 AM MEDICATION NURSE Pulse 62 05/13/2024 9:00 AM MEDICATION NURSE Temperature 36 C (96.8 F) 05/13/2024 9:00 AM MEDICATION NURSE Respiratory Rate 16 05/13/2024 9:00 AM MEDICATION NURSE Oxygen Saturation 100% 05/13/2024 9:00 AM MEDICATION NURSE Inhaled Oxygen Concentration - - Weight 115.7 kg (255 lb) 05/05/2024 10:16 AM MEDICATION NURSE Height 182.9 cm (6') 05/05/2024 10:16 AM MEDICATION NURSE Body Mass Index 34.58 05/05/2024 10:16 AM MEDICATION NURSE Plan of Treatment Health Maintenance Due Date [...] IMAGING - COLONOSCOPY Routine 05/13/2024 6:32 AM MEDICATION NURSE from Last 3 Months or Most Recently Relevant to Health Maintenance Results * GI IMAGING - COLONOSCOPY (05/13/2024 6:32 AM MEDICATION NURSE) Darci Villa MD IMG DIAGNOSTIC ORDERABLES Final Result from Last 3 Months or Most Recently Relevant to Health Maintenance Insurance MEDICARE C AETNA Care Teams Auto Repair Technician Relationship Specialty Start Date End Date Indio Gramajo MD [address] [phone] PCP - General Family Medicine 05/11/20
--- NOTE | 2025-02-24 15:38 | ED_ITS ---
HPI - Extremity Injury (Lower) General Chief Complaint: Extremity Injury, Lower Stated Complaint: SENT IN FOR ULTRASOUND, L LEG SWELLING Time Seen by Provider: 02/24/25 13:44 Source: patient Mode of arrival: ambulatory Limitations: no limitations History of Present Illness HPI Narrative: This is a 74-year-old male that presents to emergency department for left lower extremity swelling and redness. Ongoing over the last week. Denies fevers. Related Data Home Medications ?Medication ?Instructions ?Recorded ?Confirmed ?Last Taken ?Type cholecalciferol (vitamin D3) 50 50 mcg PO BID 05/06/20 06/25/24 06/25/24 History mcg (2,000 unit) capsule multivitamin 1 tablet PO DAILY 05/06/20 0 06/25/24 06/25/24 History vitamin B complex (B 1 tablet PO DAILY 05/06/20 0 06/25/24 06/25/24 History Complex-Vitamin B12 tablet) metformin 500 mg tablet,extended 1,000 mg PO BIDWMEAL 06/25/24 06/25/24 06/25/24 History release 24 hr febuxostat 80 mg tablet mg 02/24/25 Unknown History Allergies Allergy/AdvReac Type Severity Reaction Status Date / Time No Known Allergies Allergy Mild Verified 02/24/25 13:27 Review of Systems 2 Review of Systems: All systems reviewed & are unremarkable except as noted in HPI and below PMFSH Past Medical History Medical History History of prostate cancer Sleep apnea Hyperlipidemia HTN (hypertension) Diabetes Surgical History Surgical History History of prostatectomy age 42 Family History Family History Mother Diabetes mellitus Father Malignant neoplasm of prostate Family history of dementia Sibling Malignant neoplasm of prostate Grandparent Malignant neoplasm of prostate Social History Social History Smoking status: Former smoker Second hand tobacco smoke exposure: No Alcohol intake: current Alcohol use details: Occasional. Substance use: never Substance use type: does not use Do You Feel Safe in your Home?: Yes Lack of Transportation: No Lack of Food: Never True Current Housing: I Have Housing Concerned About Future Housing: No Difficulty Paying Gas/Electric Bills: No Difficulty Paying for Meds: No Currently Unemployed: No Education: High School Diploma/GED Difficulty w/ Childcare or Family Care: No Living arrangements: with family Occupation/Education: retired Gender identity (if verbalized by the patient): Male Spiritual care concerns: No Exam 2 Narrative: GENERAL: Well-appearing, well-nourished, and in no acute distress. HEAD: Normocephalic, atraumatic. EYES: EOMI. CHEST: No respiratory distress. HEART: Regular rate EXTREMITIES: Normal range of motion. Mild edema of the left lower extremity with overlying redness. Normal DP pulse SKIN: Warm, dry, no rash. NEURO: No focal deficits. Alert and oriented x3. PSYCH: Normal mood and affect Course Vital Signs Vital signs: Vital Signs Temperature 97.3 F L 02/24/25 13:30 Pulse Rate 68 02/24/25 13:30 Respiratory Rate 18 02/24/25 13:30 Blood Pressure 210/61 H 02/24/25 13:30 Pulse Oximetry 99 02/24/25 13:30 Oxygen Delivery Room Air 02/24/25 13:30 Temperature 97.3 F L 02/24/25 13:30 Pulse Rate 68 02/24/25 13:30 Respiratory Rate 18 02/24/25 13:30 Blood Pressure 210/61 H 02/24/25 13:30 Pulse Oximetry 99 02/24/25 13:30 Oxygen Delivery Room Air 02/24/25 13:30 MDM - Extremity Injury (Lower) MDM Narrative Medical decision making narrative: Patient presents to the emergency department for left lower extremity redness and swelling. He is afebrile nontoxic appearing. Cbc without leukocytosis. Inflammatory markers are not elevated. Venous Doppler without evidence of DVT. Patient given 1st dose of antibiotics IV in the ER. Will be continued on oral antibiotics, instructed follow-up with PCP. Given warnings to return to the ER Differential Diagnosis Differential diagnosis: Likely other (Cellulitis, DVT) Lab Data Attestation: I reviewed the patient's lab results. 02/24/25 14:36 02/24/25 14:36 Labs: Lab Results 02/24/25 Range/Units 14:36 WBC 6.1 (4.5-10.0) K/mm3 RBC 3.75 L (4.6-6.20) M/mm3 Hgb 11.8 L (14.0-18.0) g/dL Hct 35.6 L (42.0-52.0) % MCV 94.9 (80-100) fl MCH 31.5 (26-34) pg MCHC 33.1 (32-36) g/dl RDW 13.1 (11.5-14.5) % Plt Count 196 (150-375) k/mm3 MPV 9.4 (7.4-10.4) fl Immature Gran % (Auto) 0.2 (0-0.5) % Neut % (Auto) 58.0 (45.5-73.1) % Lymph % (Auto) 29.3 (18.3-44.2) % [place] % (Auto) 11.3 H (2.6-8.5) % Eos % (Auto) 1.0 (0-4.4) % Baso % (Auto) 0.2 (0.2-1.2) % Lymph # (Auto) 1.79 (0.9-3.2) K/mm3 [place] # (Auto) 0.7 H (0.1-0.6) K/mm3 Eos # (Auto) 0.1 (0-0.3) K/mm3 Baso # (Auto) 0.0 (0.0-0.1) K/mm3 Abs Immat Gran (auto) 0.01 (0.00-0.031) K/mm3 Absolute Neuts (auto) 3.6 (1.3-6.7) K/mm3 Absolute Nucleated RBC 0.000 (0.0-0.012) K/mm3 Nucleated RBC % 0.0 (0.0-0.2) % ESR 15 (0-20) mm/hr Sodium 137 (137-145) mmol/L Potassium 4.3 (3.4-5.0) mmol/L Chloride 105 (98-107) mmol/L Carbon Dioxide 25 (22-30) mmol/L Anion Gap 7 (4-12) mmol/L BUN 30 H (9-20) mg/dL Creatinine 1.20 (0.7-1.3) mg/dL Estim Creat Clear Calc 68 ml/min Estimated GFR 60 (59 - ) Glucose 112 H (65-110) mg/dL Calcium 9.2 (8.4-10.2) mg/dL C-Reactive Protein < 0.5 (<1.0) mg/dL Imaging Data Radiologist's impression: ITS Impressions Venous Doppler Study 02/24/25 14:23 IMPRESSION: 1: No lower extremity deep venous thrombosis. 2: Reactive lymph node measuring 2.1 cm left groin. Critical Care Time Critical Care Time Critical Care Time: No Discharge Plan Discharge Clinical Impression: Cellulitis Qualifiers: Site of cellulitis: extremity Site of cellulitis of extremity: lower extremity Laterality: left Qualified Code(s): L03.116 - Cellulitis of left lower limb Patient Disposition: Home Condition: Stable Instructions: Antibiotic Form, Cellulitis (ED) Additional Instructions: Return if symptoms worsen or concerns: any increase in redness, swelling, pain or fever over 101 Take antibiotics as directed. Follow up with primary care doctor Patient Language: Albanian Prescriptions: New cephalexin 500 mg capsule 500 mg PO Q6H 7 Days Qty: 28 0RF No Action febuxostat 80 mg tablet cholecalciferol (vitamin D3) 50 mcg (2,000 unit) capsule 50 mcg PO BID multivitamin Tablet 1 tablet PO DAILY vitamin B complex [B Complex-Vitamin B12] Tablet 1 tablet PO DAILY metformin 500 mg tablet extended release 24 hr 1,000 mg PO BIDWMEAL Patient Comments: with morning meal and evening meal hydrocodone-acetaminophen 5-325 mg Tablet 1 tablet PO Q6H PRN (Reason: Pain Rated 4-6) Qty: 6 0RF (DME) blood sugar diagnostic Strip See Rx Instructions .ROUTE .MEDSUPPLY Qty: 100 3RF Rx Instructions: Use to take blood sugar daily while fasting atorvastatin 20 mg tablet 20 mg PO DAILY Qty: 90 3RF glipizide 10 mg tablet extended release 24hr 10 mg PO DAILY Qty: 90 3RF pioglitazone 30 mg tablet 30 mg PO DAILY Qty: 90 3RF irbesartan 300 mg tablet 300 mg PO DAILY Qty: 90 1RF Jardiance 10 mg tablet 10 mg PO DAILY Qty: 90 3RF Follow-up/Referrals: PHYSICIAN,BAGGAGE SCREENER [Primary Care Provider, Internal Medicine]
[2025-02-24 15:40] VITALS: BP 170/82; PULSE 80; RESP 14; O2SAT 97
--- OUTSIDE RECORDS SUMMARY | 2025-02-24 15:48 | XMS_ITS | Clinical Summary ---
Author Organization [facility] Address [address] [place] [address] Phone Care Team Providers Care Progressive Care Nurse Name Role Phone Indio Gramajo MD Primary Care Provider [phone] Allergies No known active allergies Medications glipiZIDE [...] PO Take 1,000 mg by mouth. Active [place]-3 Fatty Acids (FISH OIL PO) Take by [...] Comments Blood Pressure 156/75 05/13/2024 9:00 AM FACILITY WORKER Pulse 62 05/13/2024 9:00 AM FACILITY WORKER Temperature 36 C (96.8 F) 05/13/2024 9:00 AM FACILITY WORKER Respiratory Rate 16 05/13/2024 9:00 AM FACILITY WORKER Oxygen Saturation 100% 05/13/2024 9:00 AM FACILITY WORKER Inhaled Oxygen Concentration - - Weight 115.7 kg (255 lb) 05/05/2024 10:16 AM FACILITY WORKER Height 182.9 cm (6') 05/05/2024 10:16 AM FACILITY WORKER Body Mass Index 34.58 05/05/2024 10:16 AM FACILITY WORKER Plan of Treatment Health Maintenance Due Date [...] IMAGING - COLONOSCOPY Routine 05/13/2024 6:32 AM FACILITY WORKER from Last 3 Months or Most Recently Relevant to Health Maintenance Results * GI IMAGING - COLONOSCOPY (05/13/2024 6:32 AM FACILITY WORKER) Darci Villa MD IMG DIAGNOSTIC ORDERABLES Final Result from Last 3 Months or Most Recently Relevant to Health Maintenance Insurance MEDICARE C AETNA Care Teams Progressive Care Nurse Relationship Specialty Start Date End Date Indio Gramajo MD [address] [id number] PCP - General Family Medicine 05/11/20
== END 2025-02-24 15:56 | disposition home or self-care (01) ==
PROVIDERS: Emergency Provider Physician Assistant
DX: L03.116 Cellulitis of left lower limb (principal); G47.30 Sleep apnea, unspecified; E78.5 Hyperlipidemia, unspecified; I10 Essential (primary) hypertension; E11.9 Type 2 diabetes mellitus without complications; Z79.84 Long term (current) use of oral hypoglycemic drugs
CPT/HCPCS: 36415; 80048; 85025; 85652; 86140; 93971; 96365; 99284; J0690